=== PATIENT | female | born 1990 | race American Indian/Alaskan Native ===

== ENCOUNTER 2017-01-10 20:51 | Outpatient (CLI) | payer MEDICAID ==
[2017-01-10 21:24] VITALS: BP 136/71
[2017-01-10] MEDS ORDERED: LACTATED RINGERS 1,000 ML ONE ×2 (21:32→22:25)
[2017-01-10 22:37] LABS: Bacteria,Urine 2+ /HPF (Negative); Bilirubin,Urine NEG (Negative); Blood,Urine NEG (Negative); Ketones,Urine 20 mg/dL (Negative); Leukocyte Esterase,Urine MOD (Negative); Mucus,Urine FEW /HPF; Nitrite,Urine NEG (Negative); Protein,Urine <15 mg/dL mg/dL (Negative); Urobilinogen,Urine < 2.0 mg/dL (<2.0)
[2017-01-11] MEDS ORDERED: LACTATED RINGERS 1,000 ML IV SCH (01:00)
--- NOTE | 2017-01-11 07:56 | Ultrasound Report ---
ULTRASOUND BIOPHYSICAL PROFILE: History: well being Technique: Transabdominal ultrasound with Doppler interrogation. TWIN A 2 - breathing movements 2 - movements 2 - posture and tone 2 - Qualitative amniotic fluid volume 8 - TOTAL SCORE OF POSSIBLE 8 Heart Rate (bpm) 145 ULTRASOUND BIOPHYSICAL PROFILE: TWIN B 2 - breathing movements 2 - movements 2 - posture and tone 2 - Qualitative amniotic fluid volume 8 - TOTAL SCORE OF POSSIBLE 8 Heart Rate (bpm) 154 ULTRASOUND OB LIMITED History: well being, nonreactive stress test, evaluate cervical length Technique: Transabdominal ultrasound with Doppler interrogation. Cervical length: 2.9 cm (Normal > 3 cm)
== END 2017-01-11 01:13 | disposition home or self-care (01) ==
LOC: TRG 20:51
PROVIDERS: ATTEND Obstetrics & Gynecology
DX: O30.003 Twin pregnancy, unspecified number of placenta and unspecified number of amniotic sacs, third trimester (principal); Z3A.35 35 weeks gestation of pregnancy
CPT/HCPCS: 76815; 76819; 81001; J7120; 59025

== ENCOUNTER 2017-01-15 22:53 | Outpatient (CLI) | payer MEDICAID ==
[2017-01-15] MEDS ORDERED: LACTATED RINGERS 1,000 ML IV ONE (23:03)
[2017-01-15 23:22] VITALS: BP 135/81
[2017-01-15] MEDS ORDERED: ZOFRAN IV ONE (23:59)
[2017-01-16 01:09] LABS: Bacteria,Urine 2+ /HPF (Negative); Bilirubin,Urine NEG (Negative); Blood,Urine NEG (Negative); Granular Casts,Urine 6 /LPF; Ketones,Urine TR mg/dL (Negative); Leukocyte Esterase,Urine SM (Negative); Nitrite,Urine NEG (Negative)
== END 2017-01-16 01:40 | disposition home or self-care (01) ==
LOC: TRG 22:53
PROVIDERS: ATTEND Obstetrics & Gynecology
DX: O47.03 False labor before 37 completed weeks of gestation, third trimester (principal); Z3A.34 34 weeks gestation of pregnancy
CPT/HCPCS: 59025; 81001; 96360; J2405; J7120

== ENCOUNTER 2017-01-17 05:01 | Inpatient (IN) | payer MEDICAID ==
[2017-01-17] MEDS ORDERED: LACTATED RINGERS 2,000 ML ONE (05:39)
[2017-01-17] MEDS ORDERED: REGLAN ONE (05:42)
[2017-01-17] MEDS ORDERED: ANCEF/STERILE WATER 2 GM/20 ML 2 GM/20 ML SYRINGE IV ONE (05:42)
[2017-01-17] MEDS ORDERED: PITOCin/NS 20 UNIT/1000ML DRIP 20,000 MILLIUNITS/1,000 ML BAG IV ONE (05:42)
[2017-01-17] MEDS ORDERED: PEPCID IV ONE ×2 (05:42→05:44)
[2017-01-17] MEDS ORDERED: BICITRA ONE (05:42)
[2017-01-17] MEDS ORDERED: REGLAN IV ONE (05:44)
[2017-01-17] MEDS ORDERED: BICITRA PO ONE (05:44)
[2017-01-17] MEDS ORDERED: MORPHINE ONE (05:57)
[2017-01-17] MEDS ORDERED: ANCEF/STERILE WATER 2 GM/20 ML IV ONE (05:59)
[2017-01-17] MEDS ORDERED: ANCEF/STERILE WATER 2 GM/20 ML 2 GM/20 ML SYRINGE IV NR (06:00)
[2017-01-17] MEDS ORDERED: PITOCin/NS 20 UNIT/1000ML DRIP 20 UNITS/1,000 ML BAG IV SCH ×2 (06:00→09:00)
[2017-01-17] MEDS ORDERED: LACTATED RINGERS 1,000 ML IV SCH (06:00)
[2017-01-17 06:06] LABS: Hematocrit 29.7 % (30.3-42.9); Hemoglobin 10.2 gm/dl (10.1-14.3); Mean Corpuscular HGB Conc 34 % (30-34); Mean Corpuscular Hemoglobin 33 pg (28-32); Mean Corpuscular Volume 95 fl (79-97); Platelet Count 183 K/mm3 (140-440); Red Blood Count 3.13 M/mm3 (3.65-5.03); Red Cell Distribution Width 14.2 % (13.2-15.2); White Blood Count 9.9 K/mm3 (4.5-11.0)
[2017-01-17] MEDS ORDERED: ePHEDrine SULFATE ONE (06:09)
[2017-01-17] MEDS ORDERED: NACL 0.9% IR ONE (06:30)
[2017-01-17] MEDS ORDERED: WATER FOR IRRIG STERILE IR ONE (06:30)
[2017-01-17] MEDS ORDERED: HEMABATE IM ONE ×2 (06:40→06:44)
[2017-01-17] MEDS ORDERED: ZOFRAN ONE (06:48)
[2017-01-17] MEDS ORDERED: NACL 0.9% 1000 ML 1,000 ML ONE (07:26)
--- NOTE | 2017-01-17 07:58 | Procedure Note ---
OB Delivery Note - Section Preop diagnosis: repeat Postop diagnosis: same section procedure: primary low transverse Disposition: PACU Complications: none
[2017-01-17 08:16] LABS: Blastocytes % (Manual) 0 %
[2017-01-17 08:17] LABS: Large Platelets Few; Polychromasia Few; Target Cells Few
[2017-01-17 08:18] LABS: Diff Status Complete
[2017-01-17] MEDS ORDERED: ZOFRAN IV PRN (09:00)
[2017-01-17] MEDS ORDERED: SODIUM CHLORIDE FLUSH SYRINGE 10 ML IV PRN (09:00)
[2017-01-17] MEDS ORDERED: PHENERGAN PR PRN (09:00)
[2017-01-17] MEDS ORDERED: MORPHINE IV PRN (09:00)
[2017-01-17] MEDS ORDERED: TUCKS PAD TP PRN (09:00)
[2017-01-17] MEDS ORDERED: LANSINOH TP PRN (09:00)
[2017-01-17] MEDS ORDERED: SENOKOT PO PRN (09:00)
[2017-01-17] MEDS ORDERED: NARCAN 0.4 MG/1 ML IV PRN (09:30)
--- NOTE | 2017-01-17 10:05 | Post Anesthesia Evaluation ---
- Post Anesthesia Evaluation Patient Participated: Yes Airway Patent: Yes Stable Respiratory Function: Yes Nausea/Vomiting: No Temp > 96.8F: Yes Pain Manageable: Yes Adequeate Hydration: Yes Anesthesia Complications: No Block Receding Appropriately: Yes Patient on Ventilator: No
--- NOTE | 2017-01-17 10:05 | Anesthesia Day of Surgery ---
Anesthesia Day of Surgery - Day of Surgery Patient Examined: Yes Patient H&P Reviewed: Yes Patient is NPO: Yes
--- NOTE | 2017-01-17 10:05 | Anesthesia Consultation ---
Anesthesia Consult and Med Hx Date of service: 01/17/17 - Airway Anesthetic Teeth Evaluation: Good ROM Head & Neck: Adequate Mental/Hyoid Distance: Adequate Mallampati Class: Class I Intubation Access Assessment: Good - Pulmonary Exam CTA: Yes - Cardiac Exam Cardiac Exam: RRR - Pre-Operative Health Status ASA Pre-Surgery Classification: ASA2, Emergency Proposed Anesthetic Plan: Spinal - Pulmonary Hx Asthma: No COPD: No Hx Pneumonia: No - Cardiovascular System Hx Hypertension: No - Central Nervous System Hx Seizures: No Hx Psychiatric Problems: No - Endocrine Hx Renal Disease: No Hx End Stage Renal Disease: No Hx Hypothyroidism: No Hx Hyperthyroidism: No - Hematic Hx Anemia: No Hx Sickle Cell Disease: No - Other Systems Hx Alcohol Use: Yes (LIQUOR, WINE, BEER)
--- NOTE | 2017-01-17 10:34 | Operative Report ---
PREOPERATIVE DIAGNOSIS: Twin gestation at 34 weeks and 1 day in labor. POSTOPERATIVE DIAGNOSIS: 1. Twin gestation at 34 weeks and 1 day in labor. 2. Intraoperative uterine atony responsive to myometrial hemabate. PROCEDURE: Primary low transverse section. SURGEON: Brigitte Adames MD MACHINIST SET UP: Senior Center Director Radha Bullock ANESTHESIA: Spinal. COMPLICATIONS: None. ESTIMATED BLOOD LOSS: 800 mL. IV FLUIDS: Ringer's lactate 2 liters. URINE OUTPUT: 150 mL and clear at the end of the procedure. INTRAOPERATIVE FINDINGS: 1. Twins gestation, baby A in a vertex presentation, delivered at 6:34 AM, Apgars 8/9 at 1 and 5 mins respectively. Baby B in a footling breech presentation delivered at 6:36 AM, Apgars 8/9 at 1 and 5 mins respectively. 2.Uterine atony responsive to myometrial hemabate. PROCEDURE DETAILS: The risks, benefits, and alternatives of the procedure were discussed in detail with the patient, which included but not limited to the risk of infection, hemorrhage requiring blood transfusion and injury to the bowel, bladder, and blood vessels. The patient expressed understanding. Her questions were answered and she gave informed consent. The patient was taken to the operating room with an IV fluid infusing Ringer's lactate. In the operating room she was placed in a sitting position and given spinal anesthesia then she was placed in the dorsal supine position with leftward tilt. Rausch catheter was placed. Venodyne boots were placed. The abdomen was washed and she was prepared and draped in usual sterile fashion. After confirming adequate spinal anesthesia, a Pfannenstiel skin incision was made in the lower abdomen about 2 cm above the pubic symphysis using the scalpel. This incision was carried down to the underlying fascia using the Bovie. The fascia was opened bilaterally in a curvilinear fashion using the Bovie. Two straight Laya clamps were used to grasp the upper edge of the fascia from which the underlying rectus abdominis muscle was dissected off using the Bovie. A similar procedure was done with the lower edge of the fascia to dissect the underlying rectus abdominis muscle. The muscle was bluntly from the midline by pulling. The parietal peritoneum was grasped with two hemostat clamps and entered sharply using Metzenbaum scissors. A quick survey of the anatomy revealed a gravid uterus, normal ovaries, and fallopian tubes bilaterally. A bladder flap was created using Metzenbaum scissors. Then, the Josh O retractor was placed at the incision for proper visualization. Then, lower transverse incision was made in the lower uterine segment using the scapel then extended with bandage scissors bilaterally in a curvilinear fashion. Baby A's amniotic has been ruptured and there was scant amount of amniotic fluid. This baby was found in a vertex presentation. The head was delivered first. Bulb suction of the mouth and nose was performed. This was followed by the delivery of the shoulders and the rest of the body atraumatically. Delivery time was 6:34 a.m. Apgars were 8 at 1 minute and 9 at 5 minutes. Weight was 4 pounds 2 ounces. The cord was clamped x 2 and cut. The was handed off to the waiting car worker. Cord blood was collected. Attention was then turned to baby B. The amniotic sac was ruptured. There was copious amount of clear amniotic fluid. Baby B was found in the footling breech presentation. The feet and the body were delivered up to the thorax, and the anterior shoulder was delivered. The body was rotated 180 degrees to bring the posterior shoulder to an anterior position, which was delivered atraumatically and the head was flexed and delivered. The delivery time was 6:36 a.m. Apgars 8 at 1 minute and 9 at 5 minutes, weight 4 pounds 9 ounces and both babies were female. The cord was clamped x 2 and cut, and the baby was handed off to the waiting car worker. The placentae were delivered manually and were complete with 3-vessel cords. The uterus was cleared of clots and debris using dry lap sponges. There was some uterine atony. Hemabate 250 mcg were given into the myometrium. The uterine incision was repaired in a running locked fashion using 0 Vicryl sutures. Second layer of imbrication was placed. The gutters were cleaned of clot and debris using dry lap sponges. Again confirming adequate hemostasis, the fascia was closed in a running fashion using 0 Vicryl sutures. The skin was closed with suzie. Sterile dressing was placed. The counts of laps, needles, sponges, and instruments were correct x 2. The patient tolerated the procedure well. She was taken to the recovery room in a stable condition. JOB# [id number] BECCA/ROSIBEL RIVERA
--- NOTE | 2017-01-17 10:47 | History and Physical Report ---
ADMITTING DIAGNOSIS: Twin gestation at 34 weeks and 1 day with labor. HISTORY OF PRESENT ILLNESS: This patient is a 26-year-old female 1, para 0, due date 02/26/2017, with twin gestation at 34 weeks and 1 day, confirmed by first trimester ultrasound , who presented to the maternity floor around 5:15 a.m. complaining of fluid leakage per vagina since 2:30 AM and contractions every 2 minutes. She reported good movement for both babies. She was admitted and a bedside ultrasound showed baby A to be in the vertex presentation, Baby B to be footling breech. Heartbeat for baby A was in the 130s to 140s and for baby B 140 beats per minute. No decelerations were heard. PAST MEDICAL HISTORY: Denies. PAST SURGICAL HISTORY: Denies. ALLERGIES: Denies any drug allergies. SOCIAL HISTORY: Denies any smoking, alcohol, or drug abuse. FAMILY HISTORY: Noncontributory. REVIEW OF SYSTEMS: As above. PHYSICAL EXAMINATION: GENERAL: No acute distress. VITAL SIGNS: Stable, afebrile. HEENT: Normal. NEUROLOGIC: Alert, awake, oriented x 3. BREASTS: Deferred. RECTAL: Deferred. EXTREMITIES: +1 edema, no calf tenderness, no Homans sign. ABDOMEN: Gravid with palpable contractions every 2 minutes. PELVIC: Cervix is 9 cm, 100% effaced, baby A at +1 station, fluid is clear. LABORATORY DATA: Collection has been drawn. These are pending. IMPRESSION: Twin gestation at 34 weeks and 1 days with labor. PLAN: 1. I discussed the malpresentations with the patient and I will set her up for primary section. Risks, benefits, and alternatives of the procedure were discussed with her, which included but not limited to risks of infection, hemorrhage requiring blood transfusion, injury to the bowel, bladder, and blood vessels. She expressed understanding. Her questions were answered. She gives informed consent for primary section. 2. Admitting labs have been drawn stat, results pending. 3. Anesthesia and OR team have been called. 4. The patient is n.p.o., IV fluid has been started. Antibiotics are being given. She is director community organization to the OR. JOB# [id number] BECCA/ROSIBEL RIVERA
[2017-01-17] MEDS ORDERED: MYLICON PO PRN (11:54)
[2017-01-17] MEDS ORDERED: TORADOL IV SCH (12:00)
[2017-01-17] MEDS: BENADRYL PO PRN (12:04)
[2017-01-17 19:56] LABS: Hematocrit 26.8 % (30.3-42.9); Hemoglobin 8.8 gm/dl (10.1-14.3)
[2017-01-17] MEDS: TORADOL IV PRN (21:24)
[2017-01-18] MEDS: TORADOL IV PRN (04:32)
[2017-01-18] MEDS ORDERED: AMMONIA INHALANT IH ONE (05:04)
[2017-01-18] MEDS ORDERED: NACL 0.9% 500 ML 500 ML IV ONE (05:46)
--- NOTE | 2017-01-18 09:33 | Progress Note ---
Assessment and Plan A: POD # 1 Urinary retention P: In and Out cath done this am to empty bladder Cath prn, consider reinsertion of garcia if continues Subjective - Subjective Date of service: 01/18/17 Principal diagnosis: Primary c section, PTL, twins Patient reports: appetite normal Arminto: in NICU Objective - Vital Signs Latest vital signs: Vital Signs Temp Pulse Resp BP BP Pulse Ox 01/18/17 08:19 98.5 F 18 144/89 01/18/17 04:10 98.2 F 88 18 109/64 01/18/17 01:10 97.8 F 87 20 124/68 01/17/17 21:58 98 F 102 H 20 129/81 01/17/17 16:00 98.3 F 84 20 114/65 01/17/17 12:40 128 H 41 H 97 01/17/17 12:39 141 H 44 H 97 01/17/17 10:14 94 Intake and Output 01/17/17 01/18/17 01/18/17 22:59 06:59 14:59 Intake Total 240 600 Output Total 1400 150 Balance -1160 450 Intake: Oral 240 Intake, Free Water 600 Output: Urine 1400 150 Indwelling Catheter 1400 150 Other: Total, Intake Amount 240 Total, Output Amount 800 150 # Voids Void 0 - Exam Breasts: Present: deferred Cardiovascular: Present: Regular rate Lungs: Present: Clear to auscultation Abdomen: Present: soft Vulva: both: normal Uterus: Present: fundal height below umbilicus Extremities: Present: normal Deep Tendon Reflex Grade: Normal +2 - Labs Labs: Abnormal lab results 01/17/17 01/18/17 Range/Units 19:33 07:06 Hgb 8.8 L (10.1-14.3) gm/dl Hct 26.8 L (30.3-42.9) % Ammonia 16.0 L (25-60) umol/L
--- NOTE | 2017-01-18 10:36 | Progress Note ---
Subjective Date of service: 01/18/17 Principal diagnosis: Primary c section, PTL, twins Interval history: 1st POD after Patient is in the bed, comfortable. Pain is well controlled with pain meds.Ambulated well. No residual neurological deficit. Pruritus is mostly under control. No anesthesia complications Objective - Constitutional Vitals: Vital Signs - 12hr 01/18/17 01/18/17 01/18/17 01:10 04:10 08:19 Temperature 97.8 F 98.2 F 98.5 F Pulse Rate 87 88 Respiratory 20 18 18 Rate Blood Pressure 144/89 Blood Pressure 124/68 109/64 [Left] - Labs CBC & Chem 7: 01/17/17 19:33 Labs: Abnormal lab results 01/17/17 01/18/17 Range/Units 19:33 07:06 Hgb 8.8 L (10.1-14.3) gm/dl Hct 26.8 L (30.3-42.9) % Ammonia 16.0 L (25-60) umol/L
[2017-01-18] MEDS: PERCOCET 5/325 PO PRN ×3 (10:41→20:12)
[2017-01-18] MEDS: BENADRYL PO PRN ×2 (10:45→20:19)
[2017-01-18] MEDS ORDERED: LASIX IV ONE (18:42)
[2017-01-18] MEDS: LASIX ONE ×2 (18:49→18:53)
[2017-01-19] MEDS: PERCOCET 5/325 PO PRN ×3 (07:03→20:10)
[2017-01-19] MEDS: BENADRYL PO PRN ×2 (07:03→20:10)
[2017-01-19] MEDS: MOTRIN PO PRN ×2 (10:52→17:19)
--- NOTE | 2017-01-19 13:39 | Progress Note ---
Subjective - Subjective Date of service: 01/19/17 Principal diagnosis: Primary c section, PTL, twins Interval history: This patient is a 26 years old female who is status post primary low transverse section for labor with twin gestation on 01/17/2017. Her course has been unremarkable until she was unable to urinate after removal of the Rausch yesterday morning. At that time the Rausch catheter was re-inserted and it was draining large amount of clear urine. She had a spinal anesthesia for the procedure and she's been managed with Percocet since postoperative day 1. She developed on drowsiness after she takes a Percocet, she was then given Motrin for pain. Today, I came to see the patient. She is lying comfortably in bed, she denies any headache, visual changes, or right upper quadrant pain. Her blood pressure was 141/89, repeat was 130/82 Physical exam: Gen:no acute distress. HEENT: normal. Chest: clear to auscultation bilaterally. Cardiovascular: normal heart sound. Neurological:AAO 3 Breast exam: deferred. Rectal exam: deferred. Extremities: +2 edema tenderness no Homans sign. Abdomen: soft, positive for incisional tenderness of the incision site. Dressing is clean, dry, no drainage. Uterus is firm. Labs: pOD#1, hemoglobin 10.2 hematocrit 29.7. POD#2, hemoglobin was 8.8 hematocrit was 26.8. Assessment 1. 26 years old female who is status post primary section for labor with twins, postoperative day 2. 2. Gestation hypertension. Currently asymptomatic. 3. Anemia. 4. Urinary retention post op. Rausch has been removed. Plan: 1. Patient was given pain medication. Will monitor the blood pressure over the next 2-3 hours. If it remained elevated, will do toxemia labs. 2. We'll continue pain medication as needed. 3. Iron for anemia. 4. OOB to ambulate. 5. Monitor ability to urinate. Objective - Vital Signs Latest vital signs: Vital Signs Temp Pulse Resp BP BP BP Pulse Ox 01/19/17 12:30 100 H 130/82 01/19/17 10:52 18 01/19/17 10:50 138/90 01/19/17 08:31 97.3 F L 100 H 16 141/89 97 01/19/17 00:30 98.6 F 71 16 101/76 01/19/17 00:15 98.8 F 69 16 121/71 01/18/17 17:30 98.0 F 87 128/78 Intake and Output 01/18/17 01/19/17 01/19/17 22:59 06:59 14:59 Intake Total 300 240 Output Total 1900 1900 Balance -1900 300 -1660 Intake: Oral 240 Intake, Free Water 300 Output: Urine 1900 1900 Indwelling Catheter 1700 1900 Void 200 Other: Total, Intake Amount 240 Total, Output Amount 1700 700 # Voids Void 1
[2017-01-20] MEDS: PERCOCET 5/325 PO PRN ×3 (04:23→18:04)
--- NOTE | 2017-01-20 11:18 | Progress Note ---
Assessment and Plan A: POD #3 Voiding Well Gestational HTN Asymptomatic Anemia P: Follow Routine PostOp Orders Declines Infed Injection Continue PO FESO4 D/C Home today RTO in One Week Subjective - Subjective Date of service: 01/20/17 Principal diagnosis: Primary c section, PTL, twins Patient reports: appetite normal, voiding normally, pain well controlled, flatus , ambulating normally Normanna: in NICU, bottle feeding Objective - Vital Signs Latest vital signs: Vital Signs Temp Pulse Resp BP BP Pulse Ox 01/20/17 08:18 97.6 F 76 18 132/86 99 01/20/17 00:40 98.6 F 69 16 101/79 01/19/17 17:19 18 01/19/17 16:52 98.3 F 18 118/70 01/19/17 14:10 18 01/19/17 12:30 100 H 130/82 Intake and Output 01/19/17 01/20/17 01/20/17 22:59 06:59 14:59 Intake Total 550 Balance 550 Intake: Oral 250 Intake, Free Water 300 Other: Total, Intake Amount 250 # Voids Void 1 - Exam Breasts: Present: normal, mass Lungs: Present: Clear to auscultation Abdomen: Present: normal appearance, soft, normal bowel sounds Uterus: Present: normal, firm, fundal height below umbilicus Extremities: Present: edema Incision: Present: normal, dry, intact
--- NOTE | 2017-01-20 11:20 | Discharge Summary ---
Providers - Providers Date of Admission: 01/17/17 05:26 Date of discharge: 01/20/17 Attending physician: KATHYA CURRAN MD Primary care physician: KATHYA CURRAN MD Hospitalization Reason for admission: section Delivery: Procedure: primary low transverse Episiotomy: none Laceration: none Incision: normal, dry, intact Other procedures: none complications: other (urinary hestiancy) Discharge diagnosis: delivery Jachin baby: twins Condition at discharge: Good Disposition: DC-01 TO HOME OR SELFCARE Plan - Provider Discharge Summary Activity: routine, no sex for 6 weeks, no heavy lifting 4 weeks, no strenuous exercise Diet: routine Instructions: routine Additional instructions: [] Smoking cessation referral if applicable(refer to patient education folder for contact #) [] Refer to [facility]'s [facility] Booklet Call your doctor immediately for: * Fever > 100.5 * Heavy vaginal bleeding ( >1 pad per hour) * Severe persistent headache * Shortness of breath * Reddened, hot, painful area to leg or breast * Drainage or odor from incision. * Keep incision clean and dry at all times and follow doctor's instructions regarding bathing/showering - Follow up plan Follow up: KATHYA CURRAN MD [Primary Care Provider] - 7 Days
[2017-01-20 16:47] VITALS: BP 136/89
== END 2017-01-20 19:17 | disposition home or self-care (01) | DRG 765 ==
LOC: TRG 05:01 → LD 05:26 → OB 09:47
PROVIDERS: ADMIT Obstetrics & Gynecology; ATTEND Obstetrics & Gynecology
PROC: 10D00Z1 Extraction of Products of Conception, Low, Open Approach (ICD-10-PCS; principal; 2017-01-17)
DX: O60.14X1 Preterm labor third trimester with preterm delivery third trimester, fetus 1 (principal); O13.4 Gestational [pregnancy-induced] hypertension without significant proteinuria, complicating childbirth; O30.003 Twin pregnancy, unspecified number of placenta and unspecified number of amniotic sacs, third trimester; O60.14X2 Preterm labor third trimester with preterm delivery third trimester, fetus 2; Z3A.34 34 weeks gestation of pregnancy; Z37.2 Twins, both liveborn; O34.211 Maternal care for low transverse scar from previous cesarean delivery; O99.02 Anemia complicating childbirth; O62.2 Other uterine inertia
CPT/HCPCS: 36415; 82140; 85007; 85014; 85018; 85025; 86850; 86900; 86901; 88307; 99211; G0463; J0690; J1885; J1940; J2270; J2405; J2590; J2765; J7030; J7040; J7120

== ENCOUNTER 2017-01-24 07:58 | Inpatient (IN) | payer MEDICAID ==
--- NOTE | 2017-01-24 08:52 | XRay Report ---
ROUTINE CHEST, TWO VIEWS: HISTORY: Shortness of breath. Mild central pulmonary venous congestion is suspected. Trace left pleural effusion is also suspected. The lungs are clear. No evidence for pneumonia or pneumothorax. Heart and mediastinal structures are within normal limits. Normal bony structures. IMPRESSION: Mild central pulmonary venous congestion and trace left pleural effusion.
[2017-01-24 09:27] LABS: BUN/Creatinine Ratio 7.14; Blood Urea Nitrogen 5 mg/dL (7-17); Calcium 7.4 mg/dL (8.4-10.2); Carbon Dioxide 21 mmol/L (22-30); Chloride 106.5 mmol/L (98-107); Glucose 83 mg/dL (65-100); Sodium 141 mmol/L (137-145)
[2017-01-24 09:31] LABS: Anion Gap 18 mmol/L; Potassium 4.8 mmol/L (3.6-5.0)
[2017-01-24 09:33] LABS: Hematocrit 24.1 % (30.3-42.9); Hemoglobin 8.4 gm/dl (10.1-14.3); Mean Corpuscular HGB Conc 35 % (30-34); Mean Corpuscular Hemoglobin 33 pg (28-32); Mean Corpuscular Volume 96 fl (79-97); Platelet Count 275 K/mm3 (140-440); Red Blood Count 2.53 M/mm3 (3.65-5.03); Red Cell Distribution Width 14.8 % (13.2-15.2); White Blood Count 9.5 K/mm3 (4.5-11.0)
[2017-01-24] MEDS ORDERED: SUBLIMAZE IV ONE (09:57)
--- NOTE | 2017-01-24 09:59 | Emergency Department Report ---
ED General Adult HPI - General Chief complaint: Dyspnea/Respdistress Stated complaint: BRENDA Time Seen by Provider: 01/24/17 09:43 Source: patient, RN notes reviewed, old records reviewed Mode of arrival: Ambulatory Limitations: Physical Limitation - History of Present Illness Initial comments: This is a 26-year-old female, she is previously unknown to this provider. Denies chronic medical conditions, patient recently delivered via , at 34 weeks, by Dr. Jesusita Adames, without complication. As far as the patient knows, no history of eclampsia or preeclampsia. Patient is scheduled to have her sutures taken out today. Presents with 2 complaints. Her primary complaint is shortness of breath and orthopnea. This is constant over the past few days. It worsens with physical exertion, decreases with rest , and decreases when sitting up, and increases when laying supine. She endorses lower extremity swelling. There is no chest pain. There is no hematemesis or bright red blood per rectum. Her next complaint is lower abdominal pain over the site. The pain is sharp and constant. It does not radiate anywhere. It has been present since her . She denies irritative and obstructive urinary symptoms. -: Gradual Location: abdomen Severity scale (0 -10): 0 Quality: aching Consistency: constant Improves with: rest Worsens with: movement Associated Symptoms: shortness of breath, weakness - Related Data Home Medications Medication Instructions Recorded Confirmed Last Taken No Known Home Medications [No 01/11/17 01/24/17 Unknown Reported Home Medications] Allergies Allergy/AdvReac Type Severity Reaction Status Date / Time No Known Allergies Allergy Verified 01/10/17 21:30 ED Review of Systems ROS: Stated complaint: BRENDA Other details as noted in HPI Constitutional: malaise, weakness Eyes: denies: vision change ENT: denies: epistaxis Respiratory: shortness of breath Cardiovascular: edema. denies: chest pain Gastrointestinal: abdominal pain. denies: melena, hematochezia Genitourinary: denies: dysuria Musculoskeletal: denies: back pain Skin: denies: lesions Neurological: denies: weakness ED Past Medical Hx - Past Medical History Previous Medical History?: No Hx Hypertension: No Hx Congestive Heart Failure: No Hx Diabetes: No Hx Deep Vein Thrombosis: No Hx Renal Disease: No Hx Sickle Cell Disease: No Hx Seizures: No Hx Asthma: No Hx COPD: No Hx HIV: No - Surgical History Past Surgical History?: Yes Additional Surgical History: - Social History Smoking Status: Never Smoker Substance Use Type: None - Medications Home Medications: Home Medications Medication Instructions Recorded Confirmed Last Taken Type No Known Home Medications [No 01/11/17 01/24/17 Unknown History Reported Home Medications] ED Physical Exam - General Limitations: Physical Limitation General appearance: alert, in no apparent distress - Head Head exam: Present: atraumatic, normocephalic - Eye Eye exam: Present: normal appearance, EOMI. Absent: nystagmus - ENT ENT exam: Present: normal exam, normal orophraynx, mucous membranes moist, normal external ear exam - Neck Neck exam: Present: normal inspection, full ROM, other (JVD is noted). Absent: tenderness, meningismus - Respiratory Respiratory exam: Present: respiratory distress, rales, rhonchi - Cardiovascular Cardiovascular Exam: Present: regular rate, normal rhythm, normal heart sounds. Absent: bradycardia, tachycardia, irregular rhythm, systolic murmur, diastolic murmur, rubs, gallop - GI/Abdominal GI/Abdominal exam: Present: soft, tenderness, normal bowel sounds, other ( diffuse lower abdominal tenderness, no redness, pus or streaking, no dehiscence of the surgical site). Absent: distended, guarding, rebound, rigid, pulsatile mass - Extremities Exam Extremities exam: Present: normal inspection, normal capillary refill, pedal edema, other (2+ pitting edema is noted in the bilateral lower extremities). Absent: calf tenderness - Back Exam Back exam: Present: normal inspection, full ROM. Absent: tenderness, CVA tenderness (R), CVA tenderness (L), muscle spasm, paraspinal tenderness, vertebral tenderness - Neurological Exam Neurological exam: Present: alert, oriented X3, other (Extraocular movements intact. Tongue midline. No facial droop. Facial sensation intact to light touch in the V1, V2, V3 distribution bilaterally. 5 and 5 strength in 4 extremities.. Sensation is intact to light touch in 4 extremities.). Absent: motor sensory deficit - Psychiatric Psychiatric exam: Present: normal affect, normal mood - Skin Skin exam: Present: warm, dry, intact, normal color. Absent: rash ED Course Vital Signs 01/24/17 01/24/17 01/24/17 08:02 08:17 08:20 Temperature 98.8 F Pulse Rate 82 83 Respiratory 28 H 18 Rate Blood Pressure 144/87 O2 Sat by Pulse 97 Oximetry 01/24/17 01/24/17 01/24/17 08:21 08:30 09:00 Temperature Pulse Rate 84 71 69 Respiratory 13 16 Rate Blood Pressure 159/91 159/91 O2 Sat by Pulse 88 Oximetry 01/24/17 01/24/17 01/24/17 09:30 10:00 10:17 Temperature Pulse Rate 87 67 60 Respiratory 21 20 18 Rate Blood Pressure 144/91 155/86 155/86 O2 Sat by Pulse 96 100 Oximetry 01/24/17 01/24/17 01/24/17 10:29 10:30 11:00 Temperature Pulse Rate 64 67 70 Respiratory 20 21 Rate Blood Pressure 155/86 170/101 137/77 O2 Sat by Pulse Oximetry 01/24/17 01/24/17 01/24/17 11:32 12:00 12:30 Temperature Pulse Rate 59 L 60 Respiratory 22 23 Rate Blood Pressure 137/77 141/73 147/83 O2 Sat by Pulse 83 L 100 100 Oximetry 01/24/17 01/24/17 01/24/17 13:00 13:30 14:00 Temperature Pulse Rate 68 60 66 Respiratory 13 19 19 Rate Blood Pressure 149/86 161/93 168/101 O2 Sat by Pulse Oximetry 01/24/17 01/24/17 01/24/17 14:30 14:45 15:00 Temperature Pulse Rate 70 70 66 Respiratory 14 26 H Rate Blood Pressure 160/96 137/77 154/90 O2 Sat by Pulse Oximetry 01/24/17 01/24/17 01/24/17 15:26 15:30 16:00 Temperature Pulse Rate 68 64 63 Respiratory 21 21 Rate Blood Pressure 144/83 155/80 O2 Sat by Pulse Oximetry 01/24/17 01/24/17 01/24/17 16:30 16:56 17:00 Temperature Pulse Rate 90 67 65 Respiratory 22 27 H 28 H Rate Blood Pressure 130/77 130/77 130/77 O2 Sat by Pulse Oximetry 01/24/17 01/24/17 01/24/17 17:10 17:22 18:10 Temperature Pulse Rate 68 69 65 Respiratory 30 H 31 H Rate Blood Pressure 130/77 130/77 O2 Sat by Pulse Oximetry 01/24/17 18:15 Temperature 98.7 F Pulse Rate 71 Respiratory 18 Rate Blood Pressure O2 Sat by Pulse Oximetry - Reevaluation(s) Reevaluation #1: 01/24/17 11:27 CT scan complete. Still symptomatic. feels improved on BiPAP therapy. Reevaluation #2: 01/24/17 12:14 CT scan demonstrates no pulmonary embolus. Abdominal CT negative for acute findings. Findings consistent with cardiomyopathy/congestive heart Reevaluation #3: 01/24/17 12:42 Dr. Bhagat, [facility] physician accepts patient to his service. ED Medical Decision Making - Lab Data Result diagrams: 01/25/17 05:46 01/25/17 05:46 Vital Signs 01/24/17 01/24/17 01/24/17 08:02 08:17 08:20 Temperature 98.8 F Pulse Rate 82 83 Respiratory 28 H 18 Rate Blood Pressure 144/87 O2 Sat by Pulse 97 Oximetry 01/24/17 01/24/17 01/24/17 08:21 08:30 09:00 Temperature Pulse Rate 84 71 69 Respiratory 13 16 Rate Blood Pressure 159/91 159/91 O2 Sat by Pulse 88 Oximetry 01/24/17 01/24/17 01/24/17 09:30 10:00 10:17 Temperature Pulse Rate 87 67 60 Respiratory 21 20 18 Rate Blood Pressure 144/91 155/86 155/86 O2 Sat by Pulse 96 100 Oximetry 01/24/17 01/24/17 10:29 10:30 Temperature Pulse Rate 64 67 Respiratory 20 Rate Blood Pressure 155/86 170/101 O2 Sat by Pulse Oximetry Lab Results 01/24/17 01/24/17 01/24/17 Range/Units 08:58 08:58 08:58 WBC 9.5 (4.5-11.0) K/mm3 RBC 2.53 L (3.65-5.03) M/mm3 Hgb 8.4 L (10.1-14.3) gm/dl Hct 24.1 L (30.3-42.9) % MCV 96 (79-97) fl MCH 33 H (28-32) pg MCHC 35 H (30-34) % RDW 14.8 (13.2-15.2) % Plt Count 275 (140-440) K/mm3 PT 13.7 (12.2-14.9) Sec. INR 1.00 (0.87-1.13) APTT 28.8 (24.2-36.6) Sec. Sodium 141 (137-145) mmol/L Potassium 4.8 (3.6-5.0) mmol/L Chloride 106.5 (98-107) mmol/L Carbon Dioxide 21 L (22-30) mmol/L Anion Gap 18 mmol/L BUN 5 L (7-17) mg/dL Creatinine 0.7 (0.7-1.2) mg/dL Estimated GFR > 60 ml/min BUN/Creatinine Ratio 7.14 % Glucose 83 (65-100) mg/dL Calcium 7.4 L (8.4-10.2) mg/dL Total Bilirubin (0.1-1.2) mg/dL Direct Bilirubin (0-0.2) mg/dL Indirect Bilirubin mg/dL AST (5-40) units/L ALT (7-56) units/L Alkaline Phosphatase (35-129) units/L Troponin T < 0.010 (0.00-0.029) ng/mL NT-Pro-B Natriuret Pep (0-450) pg/mL Total Protein (6.3-8.2) g/dL Albumin (3.9-5) g/dL Albumin/Globulin Ratio % Urine Color (Yellow) Urine Turbidity (Clear) Urine pH (5.0-7.0) Ur Specific [place] (1.003-1.030) Urine Protein (Negative) mg/dL Urine Glucose (UA) (Negative) mg/dL Urine Ketones (Negative) mg/dL Urine Blood (Negative) Urine Nitrite (Negative) Urine Bilirubin (Negative) Urine Urobilinogen (<2.0) mg/dL Ur Leukocyte Esterase (Negative) Urine WBC (Auto) (0.0-6.0) /HPF Urine RBC (Auto) (0.0-6.0) /HPF U Epithel Cells (Auto) (0-13.0) /HPF 01/24/17 01/24/17 Range/Units 08:58 10:04 WBC (4.5-11.0) K/mm3 RBC (3.65-5.03) M/mm3 Hgb (10.1-14.3) gm/dl Hct (30.3-42.9) % MCV (79-97) fl MCH (28-32) pg MCHC (30-34) % RDW (13.2-15.2) % Plt Count (140-440) K/mm3 PT (12.2-14.9) Sec. INR (0.87-1.13) APTT (24.2-36.6) Sec. Sodium (137-145) mmol/L Potassium (3.6-5.0) mmol/L Chloride (98-107) mmol/L Carbon Dioxide (22-30) mmol/L Anion Gap mmol/L BUN (7-17) mg/dL Creatinine (0.7-1.2) mg/dL Estimated GFR ml/min BUN/Creatinine Ratio % Glucose (65-100) mg/dL Calcium (8.4-10.2) mg/dL Total Bilirubin 0.40 (0.1-1.2) mg/dL Direct Bilirubin < 0.2 (0-0.2) mg/dL Indirect Bilirubin 0.2 mg/dL AST 47 H (5-40) units/L ALT 19 (7-56) units/L Alkaline Phosphatase 86 (35-129) units/L Troponin T (0.00-0.029) ng/mL NT-Pro-B Natriuret Pep 943.5 H (0-450) pg/mL Total Protein 6.3 (6.3-8.2) g/dL Albumin 2.6 L (3.9-5) g/dL Albumin/Globulin Ratio 0.7 % Urine Color Straw (Yellow) Urine Turbidity Clear (Clear) Urine pH 7.0 (5.0-7.0) Ur Specific [place] 1.004 (1.003-1.030) Urine Protein <15 mg/dl (Negative) mg/dL Urine Glucose (UA) Neg (Negative) mg/dL Urine Ketones Neg (Negative) mg/dL Urine Blood Sm (Negative) Urine Nitrite Neg (Negative) Urine Bilirubin Neg (Negative) Urine Urobilinogen < 2.0 (<2.0) mg/dL Ur Leukocyte Esterase Sm (Negative) Urine WBC (Auto) 2.0 (0.0-6.0) /HPF Urine RBC (Auto) 2.0 (0.0-6.0) /HPF U Epithel Cells (Auto) 1.0 (0-13.0) /HPF - EKG Data -: EKG Interpreted by Me EKG shows normal: sinus rhythm, axis, intervals, QRS complexes - EKG Data When compared to previous EKG there are: previous EKG unavailable - Radiology Data Radiology results: report reviewed, image reviewed X-ray of the chest demonstrates pulmonary vascular congestion, pleural effusion - Medical Decision Making Differential diagnosis: cardiomyopathy, preeclampsia, pneumonia, pulmonary embolus, postsurgical infection Assessment and plan: 26-year-old female with hypertension, edema, congestive heart failure, no transaminitis, not having proteinuria. I highly favor cardiomyopathy. Hypertension is appreciated, given concern for decreased cardiac contractility, negative inotropes will be held, and I will therefore not give labetalol. Patient will be given hydralazine. She does not require Cardene drip at this time. She is also treated empirically with magnesium drip and magnesium bolus. CT scan of the chest is pending. CT scan of the abdomen and pelvis is pending. Case discussed with the patient's screed operator, Dr. Jesusita Barfield, who will follow in consultation. Case discussed with cardiology nurse practitioner, Paula Park, they will follow in consultation. Patient will be admitted for presumed cardiomyopathy. Critical Care Time: Yes Critical care time in (mins) excluding proc time.: 35 Critical care attestation.: If time is entered above; I have spent that time in minutes in the direct care of this critically ill patient, excluding procedure time. ED Disposition Clinical Impression: cardiomyopathy Dyspnea Qualifiers: Dyspnea type: unspecified Qualified Code(s): R06.00 - Dyspnea, unspecified Disposition: -09 OP ADMIT IP TO THIS HOSP Is pt being admited?: Yes Condition: Good
[2017-01-24] MEDS ORDERED: APRESOLINE IV ONE ×2 (10:00→11:22)
[2017-01-24 10:22] LABS: Partial Thromboplastin Time 28.8 Sec. (24.2-36.6)
[2017-01-24] MEDS ORDERED: NACL ONE (10:28)
[2017-01-24 10:38] LABS: Alanine Aminotransferase 19 units/L (7-56); Albumin 2.6 g/dL (3.9-5); Albumin/Globulin Ratio 0.7 %; Alkaline Phosphatase 86 units/L (35-129); Total Protein 6.3 g/dL (6.3-8.2)
[2017-01-24 10:39] LABS: Bilirubin,Direct < 0.2 mg/dL (0-0.2)
[2017-01-24 10:45] LABS: Bilirubin,Urine NEG (Negative); Blood,Urine SM (Negative); Ketones,Urine NEG (Negative); Leukocyte Esterase,Urine SM (Negative); Nitrite,Urine NEG (Negative); Protein,Urine <15 mg/dL mg/dL (Negative); Urobilinogen,Urine < 2.0 mg/dL (<2.0)
[2017-01-24 10:59] LABS: Bilirubin,Indirect 0.2 mg/dL
[2017-01-24] MEDS ORDERED: MAGNESIUM SULFATE 40GM/1000ML 40 GM/1,000 ML BAG IV SCH ×2 (11:00→18:00)
[2017-01-24] MEDS ORDERED: MAGNESIUM SULFATE 4GM/100ML 4 GM/100 ML BAG IV ONE (11:00)
[2017-01-24 11:22] LABS: Blastocytes % (Manual) 0 %
[2017-01-24 11:23] LABS: Anisocytosis Few; Basophils % (Manual) 0 % (0.0-1.8); Polychromasia Few
[2017-01-24 11:24] LABS: Diff Status Complete
--- NOTE | 2017-01-24 12:07 | Cat Scan Report ---
CTA CHEST: History: Shortness of breath, cardiomyopathy Technique: Helical CT following IV contrast. Pulmonary embolus protocol. Sagittal and coronal reformatted images. Rotational MIP images. Findings: Contrast bolus is satisfactory. No pulmonary embolus is identified. Heart size is at the upper limits of normal. No pericardial effusion. Mild peribronchial infiltration is identified in the perihilar regions bilaterally which probably represents mild pulmonary edema. This fever is present, early infiltrates could be considered. There are small bilateral layering pleural effusions measuring up to 1.5 cm. No pneumothorax. The bony structures are intact. Impression: No evidence for pulmonary embolus. Mild bilateral pulmonary edema and small bilateral pleural effusions.
--- NOTE | 2017-01-24 12:08 | Cat Scan Report ---
CT SCAN OF THE ABDOMEN AND PELVIS WITH CONTRAST: HISTORY: Abdominal pain, recent . TECHNIQUE: Helical CT in 1.25mm intervals following IV contrast. Sagittal and coronal reconstructions. FINDINGS: The liver is normal in size and is without focal defect. The multiple small gallstones are identified within the gallbladder. The common bile duct and intrahepatic biliary ducts are normal. The spleen and pancreas demonstrate a normal size and attenuation with no evidence of abnormal mass. The kidneys are normal in size and position with no evidence of hydronephrosis or mass. The adrenal glands are normal. There is no intestinal obstruction or ascites. Normal appendix. The abdominal aorta is normal. An enlarged edematous uterus is identified. No evidence for hemorrhage or endometrial gas. The adnexa are unremarkable. There is no evidence of peritoneal air or fluid. There is no evidence of any abnormal masses or fluid collections within the pelvis. No adenopathy is identified. The bladder is normal. IMPRESSION: Cholelithiasis. uterus. No acute process is identified in the abdomen or pelvis.
--- NOTE | 2017-01-24 12:43 | History and Physical Report ---
History of Present Illness Chief complaint: I cant breathe at all History of present illness: 26 YO Female with Obesity, S/P C section at 34 weeks gestation presents to ED for evaluation. Pt states that she has experienced difficulty breathing over the past 5 days with worsening symptoms over the past 12 hours. Pt acknowledges Orthopnea/PND, as well as bilateral leg swellilng. Pt states that symptoms are worse with exertion. Pt denies fever, chills, CP, Palpitations, NVD, Syncope, BRBPR, Trauma, hemoptysis, unilateral leg swelling, calf pain, prolonged travel/ immobility, individual/family history of DVT/PE, productive cough, or recent ill contacts. Past History Past Medical History: other (Obesity) Past Surgical History: Social history: single, lives with family. denies: smoking, alcohol abuse, prescription drug abuse, IV drug use Family history: diabetes, hypertension Medications and Allergies Allergies Allergy/AdvReac Type Severity Reaction Status Date / Time No Known Allergies Allergy Verified 01/10/17 21:30 Home Medications Medication Instructions Recorded Confirmed Last Taken Type No Known Home Medications [No 01/11/17 01/24/17 Unknown History Reported Home Medications] Active Meds: Active Medications Magnesium Sulfate (Magnesium Sulfate 40gm/1000ml) 40 gm in 1,000 mls @ 25 mls/ hr IV DIRECT SHILA PRN Reason: 1 GM/HR Magnesium Sulfate (Magnesium Sulfate 4gm/100ml) 4 gm in 100 mls @ 25 mls/hr IV ONCE.ED ONE Stop: 01/24/17 14:59 Last Admin: 01/24/17 12:13 Dose: 25 mls/hr Review of Systems Constitutional: no weight loss, no weight gain, no fever, no chills, no sweats, no night sweats Ears, nose, mouth and throat: no ear pain, no ear discharge, no tinnitis, no decreased hearing, no nose pain, no nasal congestion, no nasal discharge, no sinus pressure Breasts: no change in shape, no swelling, no mass Cardiovascular: orthopnea, edema, shortness of breath, dyspnea on exertion, paroxysmal nocturnal dyspnea, leg edema, decreased exercise tolerance, no chest pain, no palpitations, no rapid/irregular heart beat, no syncope, no lightheadedness, no claudication, no phlebitis Respiratory: no cough, no cough with sputum, no excessive sputum, no hemoptysis , no shortness of breath, no dyspnea on exertion Gastrointestinal: no abdominal pain, no nausea, no vomiting, no diarrhea, no constipation, no change in bowel habits Genitourinary Female: no dysmenorrhea, no pelvic pain, no flank pain, no menorrhagia, no dysuria Rectal: no pain, no incontinence, no bleeding Musculoskeletal: no neck stiffness, no neck pain, no shooting arm pain, no arm numbness/tingling, no low back pain, no shooting leg pain Integumentary: no rash, no pruritis, no redness, no sores, no wounds, no jaundice, no boils Neurological: no head injury, no transient paralysis, no paralysis, no weakness , no parathesias, no numbness, no tingling Psychiatric: no anxiety, no memory loss, no change in sleep habits, no sleep disturbances, no insomnia, no hypersomnia, no change in appetite, no change in libido, no suicidal ideation Endocrine: no cold intolerance, no heat intolerance, no polyphagia, no excessive thirst, no polydipsia, no polyuria, no nocturia, no excessive sweating Hematologic/Lymphatic: no easy bruising, no easy bleeding Allergic/Immunologic: no urticaria, no allergic rhinitis, no wheezing Exam - Constitutional Vitals: Temp Pulse Resp BP Pulse Ox 98.8 F 67 20 170/101 100 01/24/17 08:02 01/24/17 10:30 01/24/17 10:30 01/24/17 10:30 01/24/17 10:17 General appearance: Present: mild distress, obese - EENT Eyes: Present: PERRL ENT: hearing intact, clear oral mucosa - Neck Neck: Present: supple, normal ROM - Respiratory Respiratory effort: labored Respiratory: bilateral: diminished, rhonchi - Cardiovascular Rhythm: regular Heart Sounds: Present: S1 & S2 - Extremities Extremities: no ischemia Extremity abnormal: edema - Abdominal General gastrointestinal: Present: soft, non-tender, tender (apporpriately tender, at incision site), non-distended, normal bowel sounds Female genitourinary: Present: normal - Rectal Rectal Exam: normal rectal tone - Integumentary Integumentary: Present: clear, warm, dry - Musculoskeletal Musculoskeletal: gait normal, strength equal bilaterally - Psychiatric Psychiatric: appropriate mood/affect, intact judgment & insight - Neurologic Neurologic: CNII-XII intact, moves all extremities Results - Labs CBC & Chem 7: 01/24/17 08:58 01/24/17 08:58 Labs: Abnormal lab results 01/24/17 01/24/17 01/24/17 Range/Units 08:58 08:58 08:58 RBC 2.53 L (3.65-5.03) M/mm3 Hgb 8.4 L (10.1-14.3) gm/dl Hct 24.1 L (30.3-42.9) % MCH 33 H (28-32) pg MCHC 35 H (30-34) % Monocytes % (Manual) 12.0 H (0.0-7.3) % Monocytes # (Manual) 1.1 H (0.0-0.8) K/mm3 Carbon Dioxide 21 L (22-30) mmol/L BUN 5 L (7-17) mg/dL Calcium 7.4 L (8.4-10.2) mg/dL AST 47 H (5-40) units/L NT-Pro-B Natriuret Pep 943.5 H (0-450) pg/mL Albumin 2.6 L (3.9-5) g/dL Assessment and Plan - Patient Problems (1) Systolic CHF, acute Current Visit: Yes Status: Acute Plan to address problem: Cardiology consulted, fluid restriction, afterload reduction, monitor uop q shift to ensure negative fluid balance, echo, diuresis, (2) Accelerated hypertension Current Visit: Yes Status: Acute Plan to address problem: Monitor BP q shift, telemetry monitoring (3) Morbid obesity with BMI of 40.0-44.9, adult Current Visit: Yes Status: Acute Plan to address problem: Balanced idet, increased physical activity, outpatient bariatric surgery, (4) DVT prophylaxis Current Visit: Yes Status: Acute
[2017-01-24] MEDS ORDERED: PROVENTIL IH PRN (12:45)
[2017-01-24] MEDS ORDERED: TYLENOL PO PRN (12:45)
[2017-01-24] MEDS ORDERED: LASIX IV ONE (14:28)
--- NOTE | 2017-01-24 17:09 | Event Note ---
Date: 01/24/17 Detailed cardiology consultation dictated. A: #1: acute heart failure / ? xenia- CMP - pt intends to breast feed #2: accelerated HTN #3: anemia - [id number] #4: elevated DDimer - chest CTA negative for PE #5: obesity P: Obtain echo. Diuresis with IV lasix. Monitor renal indices. Initiate labetalol - safe in breast feeding. Son CODY NP / DR. MUNOZ
--- NOTE | 2017-01-24 17:35 | Consultation ---
History of Present Illness Consult date: 01/24/17 History of present illness: This patient is a 26 years old female who is status post primary low transverse section for labor at 34 weeks gestation with twins on 01/17/2017. She had uneventful care at [facility]. Her postoperative course has also been uneventful except for iron deficiency anemia for which she has been treated with iron sulfate. She was discharged home on postoperative day 3. This patient presented to the emergency department earlier this morning complaining of shortness of breath and swelling of the legs which started about 5 days ago. As per the patient, after she got home from the hospital, she started to feel very tired and when she walked around, she was not able to breathe. Those symptoms got better with rest. Her shortness got worse over the past 12 hours. In the emergency room, her initial blood pressure was 159/91, repeat blood pressure 147/83. Chest x-ray showed pulmonary congestion and pleural effusion. At that time, the differential diagnosis included pulmonary embolism, CHF and cardiomyopathy, and pre-eclampsia. Toxemia labs, cardiac enzymes, chemistry, urinalysis, chest spiral CT and abdomino-pelvic CAT scan were ordered. IV lasix was given. I went to see this patient in the ER. At that time, her BP was 147/83, HR 84, T98.8F, O2 sat 97% at RA and 99% on 10 L of oxygen. She she also reported severe pain at the incision site because she has not been able to take her pain medicine for 2 days because of her insurance not covering her meds. She was given hydrocodone from her mother to take for the past 2 days which help her with the pain. She denies any headache, visual disturbances, or right upper quadrant pain. vaginal bleeding has been very mild. Past medical history: denies Past surgical history: primary section for labor with twins. Allergies: denies any drug allergies. Social history: denies any smoking alcohol or drug abuse. HORTICULTURAL FARMWORKER history: unremarkable. Obstetric history: section 1 a week ago for twins with labor. Review of system: as above. Physical exam: General: no acute distress. Appears to be short of breath. Neurologic: Alert and oriented 3. Breast exam: deferred. Rectal exam: deferred. Pelvic exam: deferred. Extremities:+2 edema in both extremities, no Homans sign, no tenderness. Labs: Hemoglobin 8.4, hematocrit 34.1, platelets 275, white count 9.5. D-dimer> 10,000. AST 47, ALT 19, urine protein less than 15, calcium 7.4, sodium 141, potassium 4.8, BUN 5, creatinine 0.7, glucose 83. Chest CT: negative for pulmonary embolism. Abd/pelvic CT scan: negative for any acute pelvic abnormalities. Assessment/Plans: 1. 26 year old female , S/P primary low transverse section for labor with twins at 34 weeks one week ago with preeclampsia. Magnesium sulfate 4 g loading dose was given and will be continued at 1.5 g per hour. Will monitor magnesium level, blood pressure, urine output. 2. Dyspnea. Pulmonary embolism has been ruled out. Patient is afebrile, however pneumonia is possible. Possible CHF, cardiomyopathy. Medical consult in progress. Cardiology consult has been called. Echocardiogram has been ordered. Will continue oxygen via face mask and management as per cardiology. 3. Anemia continue iron sulfate twice a day. Past History - Obstetrical History : 1 Medications and Allergies Allergies Allergy/AdvReac Type Severity Reaction Status Date / Time No Known Allergies Allergy Verified 01/10/17 21:30 Home Medications Medication Instructions Recorded Confirmed Last Taken Type No Known Home Medications [No 01/11/17 01/24/17 Unknown History Reported Home Medications] Active Meds: Active Medications Acetaminophen (Tylenol) 650 mg PO Q4H PRN PRN Reason: Pain MILD(1-3)/Fever >100.5/JOHNSON Albuterol (Proventil) 2.5 mg IH Q4HRT PRN PRN Reason: Shortness Of Breath Furosemide (Lasix) 20 mg IV BID@0600,1800 SHILA Magnesium Sulfate (Magnesium Sulfate 40gm/1000ml) 40 gm in 1,000 mls @ 25 mls/ hr IV DIRECT SHILA PRN Reason: 1 GM/HR Last Admin: 01/24/17 16:12 Dose: 1 gm/hr, 25 mls/hr - Vital Signs Vital signs: Vital Signs Temp Pulse Resp BP Pulse Ox 98.8 F 82 28 H 144/87 97 01/24/17 08:02 01/24/17 08:02 01/24/17 08:02 01/24/17 08:02 01/24/17 08:02 Temp Pulse Resp BP Pulse Ox 98.8 F 70 23 137/77 100 01/24/17 08:02 01/24/17 14:45 01/24/17 12:30 01/24/17 14:45 01/24/17 12:30 Results Result Diagrams: 01/24/17 08:58 01/24/17 08:58 All other labs normal.
[2017-01-24] MEDS: NORMODYNE PO SCH (18:10)
[2017-01-24] MEDS: LASIX IV SCH (18:11)
--- NOTE | 2017-01-25 04:44 | Consultation ---
The patient in ED, room number is Emergency Room #1. Consultation is requested by Dr. Bhagat. HISTORY OF PRESENT ILLNESS: This is a 26-year-old female who presents to the Emergency Room with complaints of severe shortness of breath and orthopnea and edema for further evaluation and management. History is now obtained from the patient as well as patient's mother. The patient had done 1 week ago at 34 weeks of gestation. It was a twin . She tolerated the procedure well. But even prior to that, the patient has been noticing progressively worsening edema of both lower extremities. She has been having some shortness of breath as well as elevation of blood pressure. But after over the past 5 days, her dyspnea has progressively gotten worse. She has orthopnea too. Edema is also worse as per the patient. She has not monitored her blood pressure though. Then, 12 hours prior to admission, dyspnea was quite worse and so she came to the Emergency Room. She does complain of orthopnea. No definite history of any paroxysmal nocturnal dyspnea. No palpitations, claudications, dizziness or syncope. No chest pain. No fever, cough, chills. The patient denied any history of hypertension, hyperlipidemia or diabetes mellitus. No other significant illnesses in the past. SOCIAL HISTORY: She is a nonsmoker, nonalcoholic. ALLERGIES: None known to medications. FAMILY HISTORY: Positive for hypertension and diabetes. REVIEW OF SYSTEMS: CARDIOVASCULAR: As noted. RESPIRATORY: The patient does complain of shortness of breath. No cough. No GI or complaints at this time. PHYSICAL EXAMINATION: GENERAL: This is a 26-year-old female who is very obese and in no acute distress. The patient is now on oxygen. The patient is alert and oriented. SKIN: Warm and dry. HEENT: Pupils reacting. NECK: Supple. Both carotids well palpable. No definite bruits. No JVD. CHEST: Distant breath sounds. Prolonged expiration and expiratory rhonchi. Few rales at the lung bases. HEART: S1, S2 heard well. Not tachycardic. No S3 gallop. Grade 1/6 systolic murmur noted. ABDOMEN: Soft, obese and tender due to surgery. EXTREMITIES: Right now, she has trace to 1+ pitting edema bilaterally. No calf tenderness. Good pedal pulses. NEUROLOGIC: Evaluation was grossly within normal limits. RECTAL AND PELVIC: Examination was not done at this time. The patient had a CT scan of the chest done, which showed no evidence of pulmonary embolism. The patient's laboratory data showed hemoglobin of 8.4 with hematocrit of 24.1. The patient's BUN was 5 and creatinine 0.7, and potassium was 4.8. Chest x-ray was suggestive of congestive heart failure. IMPRESSION: 1. Congestive heart failure, probably systolic. 2. Hypertension. 3. Morbid obesity. 4. Status post section 1 week ago. This is a 26-year-old female who just underwent a a week ago, now presenting with worsening shortness of breath, edema of feet and elevated blood pressure for further evaluation and management. The patient underwent at 34 weeks of twin . 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 So for now, we will proceed with her Lasix for diuresis and monitor the renal function closely. The patient is also anemic. We will obtain an echocardiogram to assess the LV function. Meanwhile control the blood pressure too. If LV function shows systolic dysfunction, then obviously the patient has peripartum cardiomyopathy. If that is normal, then we will likely assume that uncontrolled hypertension contributed to her congestive heart failure. I have explained all this in detail to the patient as well as the family, answered all the questions, and do agree with the present management. We will continue to observe her closely. We will check the echocardiogram when it is done. The rest of the plan is as per orders. Thank very much for this consultation. We will follow the patient along with you. JOB# [id number] JOCELYN/ROSIBEL
[2017-01-25] MEDS: LASIX IV SCH ×2 (05:53→18:53)
[2017-01-25 06:39] LABS: Hematocrit 24.6 % (30.3-42.9); Hemoglobin 8.6 gm/dl (10.1-14.3); Mean Corpuscular HGB Conc 35 % (30-34); Mean Corpuscular Hemoglobin 33 pg (28-32); Mean Corpuscular Volume 95 fl (79-97); Platelet Count 271 K/mm3 (140-440); Red Blood Count 2.58 M/mm3 (3.65-5.03); Red Cell Distribution Width 14.7 % (13.2-15.2); White Blood Count 8.3 K/mm3 (4.5-11.0)
[2017-01-25 06:53] LABS: Anion Gap 18 mmol/L; BUN/Creatinine Ratio 4; Blood Urea Nitrogen 3 mg/dL (7-17); Carbon Dioxide 23 mmol/L (22-30); Chloride 104.7 mmol/L (98-107); Glucose 95 mg/dL (65-100); Sodium 143 mmol/L (137-145)
[2017-01-25 06:56] LABS: Potassium 3.1 mmol/L (3.6-5.0)
[2017-01-25] MEDS: NORMODYNE PO SCH ×2 (09:25→22:52)
[2017-01-25] MEDS ORDERED: K-DUR PO NR (10:00)
--- NOTE | 2017-01-25 13:30 | Progress Note ---
Assessment and Plan Assessment: Acute heart failure - no CMP or diastolic dysfunction visualized on echo. Accelerated HTN - improved Moderate MR Anemia - iron deficiency Hypokalemia Mild pulmonary HTN Elevated DDimer - chest CTA negative for PE Obesity Plan: Echo reviewed - EF 50-55%, moderate MR, mild TR, mild pulmonary HTN, RVSP 42mmHg. Do not suspect xenia- CMP at this time. Suspect HF secondary to accelerated HTN and/or ? preeclampsia and/or moderate MR. Cont diuresis with IV lasix. Replete K+. Repeat BMP in AM. Cont labetalol - safe in breast feeding. Consider conversion of diuretics from IV to PO in AM. Possible d/c home as early as tomorrow afternoon. Pt will require close OP monitoring. Recommend repeat echo in 6 months for re- evaluation of moderate MR. Assessment and plan reviewed with pt at bedside. The patient has been seen in conjunction with Dr. Benítez who agrees with the assessment and plan of care. Subjective Date of service: 01/25/17 Principal diagnosis: HF Interval history: Pt resting comfortably, states she is feeling a little better. Objective Last Vital Signs Temp 97.7 F 01/25/17 08:44 Pulse 80 01/25/17 09:25 Resp 18 01/25/17 08:44 BP 130/82 01/25/17 09:25 Pulse Ox 98 01/25/17 08:44 - Physical Examination General: Appears Well HEENT: Positive: PERRL, Normocephaly, Mucus Membranes Moist Neck: Positive: neck supple, trachea midline Cardiac: Positive: Reg Rate and Rhythm, S1/S2 Lungs: Positive: clear to auscultation Neuro: Positive: Grossly Intact, Cranial Nerve 2-12 Intact Abdomen: Positive: Unremarkable, Soft, Active Bowel Sounds, Other ( site) Skin: Negative: Rash Musculoskeletal: Normal Range of Motion Extremities: Present: edema (trace BLE ) - Labs and Meds CBC 01/25/17 Range/Units 05:46 WBC 8.3 (4.5-11.0) K/mm3 RBC 2.58 L (3.65-5.03) M/mm3 Hgb 8.6 L (10.1-14.3) gm/dl Hct 24.6 L (30.3-42.9) % Plt Count 271 (140-440) K/mm3 Comprehensive Metabolic Panel 01/25/17 Range/Units 05:46 Sodium 143 (137-145) mmol/L Potassium 3.1 L D (3.6-5.0) mmol/L Chloride 104.7 (98-107) mmol/L Carbon Dioxide 23 (22-30) mmol/L BUN 3 L (7-17) mg/dL Creatinine 0.7 (0.7-1.2) mg/dL Glucose 95 (65-100) mg/dL Calcium 7.0 L (8.4-10.2) mg/dL - Imaging and Cardiology EKG: image reviewed Echo: report reviewed - Telemetry EKG Rhythm: Sinus Rhythm
--- NOTE | 2017-01-25 13:58 | Progress Note ---
Subjective - Subjective Date of service: 01/25/17 Principal diagnosis: HF Objective - Vital Signs Vital Signs: Vital Signs - 12hr 01/25/17 01/25/17 01/25/17 04:30 08:44 09:25 Temperature 98.5 F 97.7 F Pulse Rate 75 81 80 Respiratory 18 18 Rate Blood Pressure 130/82 130/82 Blood Pressure 130/78 [Right] O2 Sat by Pulse 98 98 Oximetry - Labs Labs: Abnormal Labs 01/24/17 01/25/17 01/25/17 22:32 05:46 05:46 RBC 2.58 L Hgb 8.6 L Hct 24.6 L MCH 33 H MCHC 35 H Potassium 3.1 L D BUN 3 L Calcium 7.0 L Magnesium 3.90 H Laboratory Results - last 24 hr 01/24/17 01/25/17 01/25/17 22:32 05:46 05:46 WBC 8.3 RBC 2.58 L Hgb 8.6 L Hct 24.6 L MCV 95 MCH 33 H MCHC 35 H RDW 14.7 Plt Count 271 Sodium 143 Potassium 3.1 L D Chloride 104.7 Carbon Dioxide 23 Anion Gap 18 BUN 3 L Creatinine 0.7 Estimated GFR > 60 BUN/Creatinine Ratio 4 Glucose 95 Calcium 7.0 L Magnesium 3.90 H
--- NOTE | 2017-01-25 16:50 | Progress Note ---
Assessment and Plan /Acute heart failure - no CMP or diastolic dysfunction visualized on echo. - Echo reviewed - EF 50-55%, moderate MR, mild TR, mild pulmonary HTN, RVSP 42mmHg - Suspect HF secondary to accelerated HTN and/or ? preeclampsia and/or moderate MR. /Accelerated HTN - improved with current meds(labetalol) /Mitral regurgitation -Cardiology Recommended repeat echo in 6 months for re-evaluation of moderate MR. /Iron deficiency anemia - cont to replace iron /Hypokalemia - replete and monitor /Elevated DDimer - chest CTA negative for PE /Obesity - counselled for diet and exercise and medically stable /Acute respiratory failure - Likely from flash pulmonary edema from malignant hypertension and MR - Continue supplemental oxygen as needed - Treat underlying cause - We'll repeat chest x-ray Radiological data: CT abdomen and pelvis on 01/24/2017 showed uterus, cholelithiasis and no other acute finding CTA chest on 01/24/2017 showed mild pulmonary edema bilateral and bilateral small pleural effusion Chest x-ray on 01/24/2017 showed central pulmonary edema and small left pleural effusion Brief history: Subjective Date of service: 01/25/17 Principal diagnosis: HF Interval history: Patient seen and examined. Medical records and medication list reviewed. No acute event overnight noted by the RN. Patient continued to complain of weakness and short of breath on exertion. Discussed plan of care at bedside with patient. Objective - Exam Narrative Exam: GENERAL: well-developed morbidly obese -[place] female lying on bed appeared to be in no discomfort. HEENT: Normocephalic. Atraumatic. No conjunctival congestion or icterus. Patient has moist mucous membranes. NECK: Supple. Trachea midline. CHEST/LUNGS: Clear to auscultated bilaterally, breathing nonlabored. No wheezes crackles or rhonchi. HEART/CARDIOVASCULAR: Regular in rate and rhythm. S1 and S2 positive. ABDOMEN: Abdomen is soft, nontender. Patient has normal bowel sounds. SKIN: There is no rash. Warm and dry. NEURO: No focal motor deficit. Follows command. MUSCULOSKELETAL: No joint effusion or tenderness. EXTRIMITY: No edema, no cyanosis or clubbing. PSYCH: Cooperative. - Constitutional Vitals: Vital Signs - 12hr 01/25/17 01/25/17 01/25/17 08:44 09:25 10:00 Temperature 97.7 F Pulse Rate 81 80 Respiratory 18 Rate Blood Pressure 130/82 130/82 O2 Sat by Pulse 98 100 Oximetry - Labs CBC & Chem 7: 01/25/17 05:46 01/26/17 05:13 Labs: Abnormal lab results 01/24/17 01/25/17 01/25/17 Range/Units 22:32 05:46 05:46 RBC 2.58 L (3.65-5.03) M/mm3 Hgb 8.6 L (10.1-14.3) gm/dl Hct 24.6 L (30.3-42.9) % MCH 33 H (28-32) pg MCHC 35 H (30-34) % Potassium 3.1 L D (3.6-5.0) mmol/L BUN 3 L (7-17) mg/dL Calcium 7.0 L (8.4-10.2) mg/dL Magnesium 3.90 H (1.7-2.3) mg/dL
--- NOTE | 2017-01-25 22:09 | Physician Progress Note ---
OBSTETRIC PROGRESS NOTE This patient is a 26-year-old female 1, para 0-1-0-2, who is status post primary low-transverse section for labor with twins at 34 weeks' gestation on 01/17/2017. She had an uneventful postoperative course and was discharged home on postoperative day #3. On discharge, she had a history of anemia for which she was given iron sulfate twice a day. As per the patient, after she got home, 24 hours later, she started to experience shortness of breath. When she rested, the symptoms went away. Yesterday, she presented to the Emergency Room complaining of worsening shortness of breath and that started to happen even when she was lying down. She denies any headache, any chest pain, any dizziness, any blurry vision. Upon presentation to the Emergency Room, her blood pressure was found to be elevated at 159/91. Repeat blood pressure was 147/83. She did have a +2 bilateral pedal edema. At that time, she was diagnosed with preeclampsia and magnesium sulfate was started. She also had a chest x-ray, which showed pleural effusion and some pulmonary congestion. Labs were sent, which showed elevated liver function tests, elevated D-dimer in the 10,000. Pulmonary embolism was in the differential diagnosis and a spiral CAT scan was ordered. It was negative for pulmonary embolism. Medical consult was obtained while the patient was in the Emergency Room. At that time, IV Lasix was started. The patient was given oxygen via CPAP and her head was elevated while she was lying in bed. She continued to have the orthopnea throughout the afternoon and the same management was continued and she was admitted to the Cardiology floor. Cardiac consult was done later in the day and an echocardiogram was ordered. The echocardiogram was done through the 01/25/2017 and it did showed mild mitral regurgitation and tricuspid regurgitation with a left ventricular ejection fraction 50-55%, which is considered low in the normal range. Cardiology came again to see this patient this morning and they recommended to continue the current management. I saw the patient this morning and she was feeling much better. She was able to lie down more than she was doing yesterday and her dyspnea has significantly lessened. She was tolerating a regular diet. She denies any headache, any visual changes, any chest pain this morning. PHYSICAL EXAMINATION: VITAL SIGNS: Temperature 98.5 degrees Fahrenheit, heart rate 75, respiration 18, blood pressure 130/78. GENERAL: No acute distress. HEENT: Normal. NEUROLOGICAL: Alert, awake, oriented x 3. CHEST: Clear to auscultation bilaterally. ABDOMEN: Soft. Mild incisional tenderness. The incision is clean and dry. Zoe were intact. They were removed this morning. No drainage from the incision. PELVIC: Deferred. EXTREMITIES: Showed pedal edema, decreased to a +1 today. No calf tenderness. No Homans sign. BREASTS: Deferred. RECTAL: Deferred. LABORATORY DATA: Hemoglobin 8.6, hematocrit 24.6, white count 8.3, platelets 271. Magnesium level 3.9, potassium 3.1, calcium is 7. Echocardiogram findings as above. Chest CAT scan negative. Chest x-ray, mild pulmonary edema. D-dimer is over 10,000. ASSESSMENT: 1. A 26-year-old female G1, P0-1-0-2, status post low-transverse primary section for labor with twins at 34 weeks 1 week ago, admitted with preeclampsia. Magnesium sulfate was given. The magnesium will be discontinued after 24 hours, which will be after 6 p.m. today. We will continue to monitor her blood pressure, her magnesium level and urine output. 2. Dyspnea. Symptoms have significantly gotten better today. Pulmonary embolism has been ruled out. Oxygen saturation has been improved. The patient remains afebrile. At this time, cardiomyopathy and possible acute congestive heart failure are the differential diagnoses. Medical consult was done. Cardiological consult was done. Echocardiogram was followed by them that was discussed with the patient: The plan is to continue the oxygen and bed rest and continue intravenous Lasix. They will be seeing the patient later today. 3. Anemia. We will continue the patient on iron sulfate. 4. Hypokalemia and hypocalcemia. These are being replaced as order from Internal Medicine. JOB# [id number] BECCA/ROSIBEL RIVERA
[2017-01-26 06:27] LABS: Anion Gap 16 mmol/L; BUN/Creatinine Ratio 5; Blood Urea Nitrogen 4 mg/dL (7-17); Calcium 6.5 mg/dL (8.4-10.2); Carbon Dioxide 28 mmol/L (22-30); Chloride 99.3 mmol/L (98-107); Glucose 87 mg/dL (65-100); Potassium 3.1 mmol/L (3.6-5.0); Sodium 140 mmol/L (137-145)
[2017-01-26] MEDS: LASIX IV SCH (06:55)
[2017-01-26] MEDS: NORMODYNE PO SCH (09:55)
[2017-01-26 09:57] VITALS: BP 127/76
--- NOTE | 2017-01-26 11:19 | Progress Note ---
Assessment and Plan Assessment: Acute heart failure - nearint/at euvolemia; no CMP or diastolic dysfunction visualized on echo; Suspect HF secondary to accelerated HTN and/or ? preeclampsia and/or moderate MR. Accelerated HTN - improved Moderate MR Anemia - iron deficiency; H/H stable Hypokalemia Mild pulmonary HTN Elevated DDimer - chest CTA negative for PE Obesity Plan: Convert IV diuresis to PO lasix, 40mg daily. Cont labetalol - safe in breast feeding. Pt will require close OP monitoring. Recommend repeat echo in 6 months for re- evaluation of moderate MR. Currently stable cardiac status. Pt may discharge home from cardiology standpoint. Follow up in our [place] office with Dr. Benítez on 01/27/2017 @ 2:00PM. The patient has been seen in conjunction with Dr. Benítez who agrees with the assessment and plan of care. Subjective Date of service: 01/26/17 Principal diagnosis: HF Interval history: Pt resting comfortably, no current complaints. VSS. Objective Last Vital Signs Temp 98.4 F 01/26/17 04:19 Pulse 86 01/26/17 09:55 Resp 18 01/26/17 08:53 BP 127/76 01/26/17 09:55 Pulse Ox 100 01/26/17 08:53 - Physical Examination General: Appears Well HEENT: Positive: PERRL, Normocephaly, Mucus Membranes Moist Neck: Positive: neck supple, trachea midline Cardiac: Positive: Reg Rate and Rhythm, S1/S2 Lungs: Positive: clear to auscultation Neuro: Positive: Grossly Intact, Cranial Nerve 2-12 Intact Abdomen: Positive: Unremarkable, Soft, Active Bowel Sounds, Other ( site) Skin: Negative: Rash Musculoskeletal: Normal Range of Motion Extremities: Present: edema (trace) - Labs and Meds Comprehensive Metabolic Panel 01/26/17 Range/Units 05:13 Sodium 140 (137-145) mmol/L Potassium 3.1 L (3.6-5.0) mmol/L Chloride 99.3 (98-107) mmol/L Carbon Dioxide 28 (22-30) mmol/L BUN 4 L (7-17) mg/dL Creatinine 0.8 (0.7-1.2) mg/dL Glucose 87 (65-100) mg/dL Calcium 6.5 L (8.4-10.2) mg/dL - Imaging and Cardiology EKG: image reviewed Echo: report reviewed (EF 50-55%, moderate MR, mild TR, mild pulmonary HTN, RVSP 42mmHg. Do not suspect xenia- CMP at this time) - Telemetry EKG Rhythm: Sinus Rhythm
--- NOTE | 2017-01-26 11:40 | Discharge Summary ---
Providers - Providers Date of Admission: 01/24/17 12:45 Date of discharge: 01/26/17 Attending physician: RADU LARA Primary care physician: [employer] Hospitalization Condition: Good Hospital course: /Acute heart failure - no CMP or diastolic dysfunction visualized on echo. - Echo reviewed - EF 50-55%, moderate MR, mild TR, mild pulmonary HTN, RVSP 42mmHg - Suspect HF secondary to accelerated HTN and/or ? preeclampsia and/or moderate MR. /Accelerated HTN - improved with current meds(labetalol) /Mitral regurgitation -Cardiology Recommended repeat echo in 6 months for re-evaluation of moderate MR. /Iron deficiency anemia - cont to replace iron /Hypokalemia - replete and monitor /Elevated DDimer - chest CTA negative for PE /Obesity - counselled for diet and exercise and medically stable /Acute respiratory failure - Likely from flash pulmonary edema from malignant hypertension and MR - Continue supplemental oxygen as needed - Treat underlying cause - We'll repeat chest x-ray Radiological data: CT abdomen and pelvis on 01/24/2017 showed uterus, cholelithiasis and no other acute finding CTA chest on 01/24/2017 showed mild pulmonary edema bilateral and bilateral small pleural effusion Chest x-ray on 01/24/2017 showed central pulmonary edema and small left pleural effusion Brief history: Time spent for discharge: 32 minutes Core Measure Documentation - Palliative Care Palliative Care/ Comfort Measures: Not Applicable - Core Measures Any of the following diagnoses?: none Exam - Physical Exam Narrative exam: GENERAL: well-developed morbidly obese -[place] female lying on bed appeared to be in no discomfort. HEENT: Normocephalic. Atraumatic. No conjunctival congestion or icterus. Patient has moist mucous membranes. NECK: Supple. Trachea midline. CHEST/LUNGS: Clear to auscultated bilaterally, breathing nonlabored. No wheezes crackles or rhonchi. HEART/CARDIOVASCULAR: Regular in rate and rhythm. S1 and S2 positive. ABDOMEN: Abdomen is soft, nontender. Patient has normal bowel sounds. SKIN: There is no rash. Warm and dry. NEURO: No focal motor deficit. Follows command. MUSCULOSKELETAL: No joint effusion or tenderness. EXTRIMITY: No edema, no cyanosis or clubbing. PSYCH: Cooperative. - Constitutional Vitals: Temp Pulse Resp BP Pulse Ox 98.4 F 86 18 127/76 100 01/26/17 04:19 01/26/17 09:55 01/26/17 08:53 01/26/17 09:55 01/26/17 08:53 Plan Activity: advance as tolerated Weight Bearing Status: Weight Bear as Tolerated Diet: low fat, low salt Wound: keep clean and dry Follow up with: PRIMARY CARE, [Primary Care Provider] - 3-5 Days Prescriptions: Ferrous Sulfate [Feosol 325 MG tab] 325 mg PO BID #60 tablet Furosemide [Lasix TAB] 40 mg PO QDAY #30 tablet Labetalol [Normodyne TAB] 100 mg PO BID #60 tablet Potassium Chloride [K-Dur] 10 meq PO QDAY #30 tablet
[2017-01-26] MEDS ORDERED: K-DUR PO NR (12:00)
[2017-01-26] MEDS ORDERED: FEOSOL PO SCH (12:00)
--- NOTE | 2017-01-26 22:42 | Physician Progress Note ---
SUBJECTIVE: This patient is a 26-year-old female 1, para 0-1-0-2 who is status post primary section on the 01/17/2017 for a history of labor with twin gestation. Postoperatively, she did very well and was discharged home on postoperative day #3. A few days later, she developed severe dyspnea and has not been able to breathe very well. She decided to come to the Emergency Room. On arrival to the Emergency Room on 01/24/2017, she had orthopnea and pleural effusion on chest x-ray. Spiral CT did rule out a pulmonary embolism. At that time, she was admitted. Her blood pressure was elevated and she was given magnesium sulfate for preeclampsia. Her blood pressure eventually got better and the magnesium sulfate was discontinued yesterday evening after 24 hours. Today, she feels much better. She is able to breathe and sitting and standing up without any difficulty. She did have Cardiology followup. She had an echo yesterday, which was normal except for mild tricuspid and mitral regurgitation and normal ejection fraction. Cardiology is planning on discharging her home sometime this week. OBJECTIVE: VITAL SIGNS: Temperature 98.4 degrees Fahrenheit, heart rate 80, respirations 18, blood pressure 123/76. GENERAL: No acute distress. ABDOMEN: Soft, mild incisional tenderness. Uterus is firm. Incision is clean, dry, no drainage. [place] were removed yesterday. PELVIC: Deferred. RECTAL: Deferred. BREASTS: Deferred. EXTREMITIES: +1 edema, no calf tenderness, no Homans sign. LABORATORY DATA: Hemoglobin 8.6, hematocrit 24.6. ASSESSMENT: A 26-year-old female, G1, P 0-1-0-2, status post section for twins with labor on 01/17/2017, who was admitted with severe dyspnea and preeclampsia. She was treated with magnesium sulfate, which was discontinued yesterday. Blood pressure has been stable. Cardiology has been monitoring the patient. An echocardiogram was done and she is scheduled to have a followup echo with Cardio as an outpatient. Cardiology is planning on discharging her home today. JOB# [id number] KV/NTS
[2017-01-27] MEDS ORDERED: LASIX PO SCH (10:00)
== END 2017-01-26 16:36 | disposition home or self-care (01) | DRG 776 ==
LOC: ED 07:58 → 4A 12:45
PROVIDERS: ADMIT Internal Medicine; ATTEND Internal Medicine
DX: O10.13 Pre-existing hypertensive heart disease complicating the puerperium (principal); J96.00 Acute respiratory failure, unspecified whether with hypoxia or hypercapnia; I50.21 Acute systolic (congestive) heart failure; O99.43 Diseases of the circulatory system complicating the puerperium; Z68.41 Body mass index [BMI] 40.0-44.9, adult; I42.9 Cardiomyopathy, unspecified; I11.0 Hypertensive heart disease with heart failure; I34.0 Nonrheumatic mitral (valve) insufficiency; D50.9 Iron deficiency anemia, unspecified; O99.53 Diseases of the respiratory system complicating the puerperium; E66.01 Morbid (severe) obesity due to excess calories; O99.285 Endocrine, nutritional and metabolic diseases complicating the puerperium; O99.215 Obesity complicating the puerperium; O90.81 Anemia of the puerperium; I27.20 Pulmonary hypertension, unspecified; E87.6 Hypokalemia; E83.51 Hypocalcemia; Z82.49 Family history of ischemic heart disease and other diseases of the circulatory system; Z83.3 Family history of diabetes mellitus; Z71.3 Dietary counseling and surveillance
CPT/HCPCS: 36415; 71020; 71275; 74177; 80048; 80074; 81001; 83735; 83880; 84484; 85007; 85025; 85027; 85379; 85610; 85730; 93005; 93010; 93306; 94760; 96365; 96367; 96375; 99291; J0360; J1940; J3010; J3475; Q9967

== ENCOUNTER 2017-02-13 08:03 | Inpatient (IN) | payer MEDICAID ==
[2017-02-13] MEDS ORDERED: MAGNESIUM SULFATE 2GM/50ML 2 GM/50 ML BAG IV ONE (08:25)
[2017-02-13] MEDS ORDERED: NORMODYNE IV ONE (08:28)
--- NOTE | 2017-02-13 08:29 | Emergency Department Report ---
ED General Adult HPI - General Chief complaint: Dyspnea/Respdistress Stated complaint: BRENDA Time Seen by Provider: 02/13/17 08:15 Source: patient, RN notes reviewed, old records reviewed Mode of arrival: Ambulatory Limitations: Physical Limitation - History of Present Illness Initial comments: This is a 26-year-old female, 1, para 0102, status post section on January 17, recently admitted to the hospital for respiratory failure is likely secondary from flash pulmonary edema, from mitral regurgitation and malignant hypertension, had an echocardiogram which demonstrated an ejection fraction 50-55%, pulmonary hypertension, suspected acute heart failure secondary to hypertension and/or possible preeclampsia Patient coming today with chest pain, shortness of breath. She reports her chest pain is central, and does not radiate to the back, arms or neck. There is no leg pain, there is no leg swelling, patient had a negative CT scan of the chest for pulmonary embolus the last time she was at this hospital. Patient was started on BiPAP therapy, and started on magnesium, as well as IV labetalol, and she reports that these interventions improved her symptoms. She declined an ABG. The patient also indicates compliance with her outpatient medications, and denies dietary indiscretions. -: Gradual Location: chest Quality: aching Consistency: constant Improves with: medication, rest Worsens with: movement Associated Symptoms: chest pain, shortness of breath, weakness - Related Data Previous Rx's Medication Instructions Recorded Last Taken Type Ferrous Sulfate [Feosol 325 MG tab] 325 mg PO BID #60 tablet 01/26/17 Unknown Rx Furosemide [Lasix TAB] 40 mg PO QDAY #30 tablet 01/26/17 Unknown Rx Labetalol [Normodyne TAB] 100 mg PO BID #60 tablet 01/26/17 Unknown Rx Potassium Chloride [K-Dur] 10 meq PO QDAY #30 tablet 01/26/17 Unknown Rx Allergies Allergy/AdvReac Type Severity Reaction Status Date / Time No Known Allergies Allergy Verified 01/10/17 21:30 ED Review of Systems ROS: Stated complaint: BRENDA Other details as noted in HPI Constitutional: malaise Eyes: denies: vision change ENT: congestion Respiratory: cough, shortness of breath Cardiovascular: chest pain Gastrointestinal: denies: vomiting Genitourinary: as per HPI. denies: dysuria Musculoskeletal: denies: arthralgia Skin: denies: lesions Neurological: weakness Psychiatric: anxiety ED Past Medical Hx - Past Medical History Hx Hypertension: No Hx Congestive Heart Failure: No Hx Diabetes: No Hx Deep Vein Thrombosis: No Hx Renal Disease: No Hx Sickle Cell Disease: No Hx Seizures: No Hx Asthma: No Hx COPD: No Hx HIV: No - Surgical History Additional Surgical History: - Social History Smoking Status: Never Smoker Substance Use Type: None - Medications Home Medications: Home Medications Medication Instructions Recorded Confirmed Last Taken Type Ferrous Sulfate [Feosol 325 MG tab] 325 mg PO BID #60 tablet 01/26/17 Unknown Rx Furosemide [Lasix TAB] 40 mg PO QDAY #30 tablet 01/26/17 Unknown Rx Labetalol [Normodyne TAB] 100 mg PO BID #60 tablet 01/26/17 Unknown Rx Potassium Chloride [K-Dur] 10 meq PO QDAY #30 tablet 01/26/17 Unknown Rx ED Physical Exam - General Limitations: No Limitations General appearance: alert, in distress - Head Head exam: Present: atraumatic, normocephalic - Eye Eye exam: Present: normal appearance, EOMI - ENT ENT exam: Present: normal exam, normal orophraynx, mucous membranes moist, normal external ear exam - Neck Neck exam: Present: normal inspection, full ROM - Respiratory Respiratory exam: Present: respiratory distress, rales, rhonchi - Cardiovascular Cardiovascular Exam: Present: regular rate, normal rhythm, normal heart sounds. Absent: bradycardia, tachycardia, irregular rhythm, systolic murmur, diastolic murmur, rubs, gallop - GI/Abdominal GI/Abdominal exam: Present: soft, normal bowel sounds. Absent: distended, tenderness, guarding, rebound, rigid, pulsatile mass - Extremities Exam Extremities exam: Present: normal inspection, full ROM, normal capillary refill. Absent: calf tenderness - Back Exam Back exam: Present: normal inspection, full ROM. Absent: tenderness, CVA tenderness (R), CVA tenderness (L), muscle spasm, paraspinal tenderness, vertebral tenderness - Neurological Exam Neurological exam: Present: alert, oriented X3, other (Extraocular movements intact. Tongue midline. No facial droop. Facial sensation intact to light touch in the V1, V2, V3 distribution bilaterally. 5 and 5 strength in 4 extremities.. Sensation is intact to light touch in 4 extremities.). Absent: motor sensory deficit - Psychiatric Psychiatric exam: Present: normal affect, normal mood - Skin Skin exam: Present: warm, dry, intact, normal color. Absent: rash ED Course Vital Signs 02/13/17 02/13/17 02/13/17 08:05 08:18 08:21 Temperature 98.9 F Pulse Rate 96 H 77 91 H Respiratory 32 H 14 16 Rate Blood Pressure 168/85 173/94 O2 Sat by Pulse 82 L 89 90 Oximetry 02/13/17 02/13/17 02/13/17 08:30 08:40 08:41 Temperature Pulse Rate 85 88 68 Respiratory 22 24 21 Rate Blood Pressure 173/89 173/89 O2 Sat by Pulse 93 98 99 Oximetry 02/13/17 02/13/17 02/13/17 08:47 08:51 09:01 Temperature Pulse Rate 83 66 72 Respiratory 12 16 Rate Blood Pressure 173/89 173/89 173/89 O2 Sat by Pulse 98 97 Oximetry 02/13/17 09:10 Temperature Pulse Rate 77 Respiratory 24 Rate Blood Pressure 146/96 O2 Sat by Pulse 97 Oximetry - Reevaluation(s) Reevaluation #1: 02/13/17 10:32 looks better case d/w ELECTRICAL ASSEMBLY SUPERVISOR Dr Adames who agrees with plan and will see the patient ED Medical Decision Making - Lab Data Result diagrams: 02/13/17 08:23 02/13/17 08:23 Vital Signs 02/13/17 02/13/17 02/13/17 08:05 08:40 08:47 Temperature 98.9 F Pulse Rate 96 H 88 83 Respiratory 32 H 24 Rate Blood Pressure 168/85 173/89 O2 Sat by Pulse 82 L 98 Oximetry Lab Results 02/13/17 02/13/17 02/13/17 Range/Units 08:23 08:23 08:23 WBC 6.8 (4.5-11.0) K/mm3 RBC 3.36 L (3.65-5.03) M/mm3 Hgb 10.4 (10.1-14.3) gm/dl Hct 31.2 (30.3-42.9) % MCV 93 (79-97) fl MCH 31 (28-32) pg MCHC 33 (30-34) % RDW 14.6 (13.2-15.2) % Plt Count 406 (140-440) K/mm3 PT 14.0 (12.2-14.9) Sec. INR 1.03 (0.87-1.13) APTT 34.1 (24.2-36.6) Sec. Sodium 143 (137-145) mmol/L Potassium 3.6 (3.6-5.0) mmol/L Chloride 106.4 (98-107) mmol/L Carbon Dioxide 24 (22-30) mmol/L Anion Gap 16 mmol/L BUN 9 (7-17) mg/dL Creatinine 0.8 (0.7-1.2) mg/dL Estimated GFR > 60 ml/min BUN/Creatinine Ratio 11 % Glucose 92 (65-100) mg/dL Calcium 8.3 L (8.4-10.2) mg/dL Total Bilirubin 0.30 (0.1-1.2) mg/dL AST 16 (5-40) units/L ALT 11 (7-56) units/L Troponin T < 0.010 (0.00-0.029) ng/mL NT-Pro-B Natriuret Pep 1297 H (0-450) pg/mL Total Protein 7.1 (6.3-8.2) g/dL Albumin 3.5 L (3.9-5) g/dL Albumin/Globulin Ratio 1.0 % - EKG Data -: EKG Interpreted by Me - EKG Data 02/13/17 09:12 Normal sinus, 77 beats per minute, normal axis, normal intervals, not morphologically consistent with STEMI, but compared to prior EKG, appears unchanged. - Radiology Data Radiology results: report reviewed, image reviewed X-ray of the chest suggests left lower lobe infiltrate - Medical Decision Making Differential diagnosis: preeclampsia, flash pulmonary edema, pneumonia, acute coronary syndrome Assessment and plan: 26-year-old female, evaluated by me in the past, suspected history of preeclampsia/ cardiomyopathy, history of flash pulmonary edema, with chest pain, shortness of breath, rales, difficulty breathing. Her clinical presentation today is very similar to when I previously evaluated the patient. Patient has had a negative CT scan of the chest, therefore I think pulmonary embolus is unlikely. BNP is elevated, x-ray the chest suggests left lower lobe pneumonia, case is discussed with nursing feller buncher operator for Dr. Adames; Gynecology will follow and make recommendations for possible preeclampsia. Blood pressure is improved at this point in time after BiPAP therapy and labetalol, it is currently 146 over 90s, patient is currently on magnesium. Cultures will be drawn, patient will be treated with ceftriaxone and azithromycin, she will also be given Lasix. Case is presented to the Hospital physician, Dr. Chamorro, who accepts the patient to the medical service. Critical Care Time: Yes Critical care time in (mins) excluding proc time.: 35 Critical care attestation.: If time is entered above; I have spent that time in minutes in the direct care of this critically ill patient, excluding procedure time. ED Disposition Clinical Impression: Systolic CHF, acute, Dyspnea, cardiomyopathy Disposition: OP ADMIT IP TO THIS HOSP Is pt being admited?: Yes Does the pt Need Aspirin: Yes Condition: Good Referrals: PRIMARY CARE, [Primary Care Provider] - 3-5 Days
[2017-02-13 08:43] LABS: Hematocrit 31.2 % (30.3-42.9); Hemoglobin 10.4 gm/dl (10.1-14.3); Mean Corpuscular HGB Conc 33 % (30-34); Mean Corpuscular Hemoglobin 31 pg (28-32); Mean Corpuscular Volume 93 fl (79-97); Platelet Count 406 K/mm3 (140-440); Red Blood Count 3.36 M/mm3 (3.65-5.03); Red Cell Distribution Width 14.6 % (13.2-15.2); White Blood Count 6.8 K/mm3 (4.5-11.0)
[2017-02-13 08:54] LABS: INR 1.03 (0.87-1.13)
[2017-02-13 08:55] LABS: Partial Thromboplastin Time 34.1 Sec. (24.2-36.6)
[2017-02-13 08:58] LABS: Alanine Aminotransferase 11 units/L (7-56); Albumin 3.5 g/dL (3.9-5); Anion Gap 16 mmol/L; BUN/Creatinine Ratio 11; Blood Urea Nitrogen 9 mg/dL (7-17); Calcium 8.3 mg/dL (8.4-10.2); Carbon Dioxide 24 mmol/L (22-30); Chloride 106.4 mmol/L (98-107); Glucose 92 mg/dL (65-100); Potassium 3.6 mmol/L (3.6-5.0); Sodium 143 mmol/L (137-145); Total Protein 7.1 g/dL (6.3-8.2)
--- NOTE | 2017-02-13 08:59 | XRay Report ---
FINAL REPORT EXAM: XR CHEST 1V AP HISTORY: dyspnea TECHNIQUE: AP portable view(s) of the chest obtained. PRIORS: None. FINDINGS: No mediastinal shift. Cardiac silhouette is not enlarged. No pneumothorax or effusion. Ill-defined opacity in the left lower lung. No acute skeletal finding. IMPRESSION: Ill-defined left lower lung airspace disease. PA and lateral chest radiographic follow-up to resolution are recommended.
[2017-02-13] MEDS ORDERED: TRIDIL DRIP 50MG/250ML 50 MG/250 ML BOTTLE IV SCH (09:00)
[2017-02-13] MEDS ORDERED: MAGNESIUM SULFATE 40GM/1000ML 40 GM/1,000 ML BAG IV SCH (09:00)
[2017-02-13] MEDS ORDERED: ROCEPHIN/NS 1 GM/50 ML 1 GM/50 ML BAG IV ONE (09:04)
[2017-02-13] MEDS ORDERED: ZITHROMAX 500 MG in NACL 0.9% 250ML 250 ML IV ONE (09:04)
[2017-02-13] MEDS ORDERED: APRESOLINE IV ONE (09:12)
[2017-02-13] MEDS ORDERED: LASIX IV ONE (09:15)
[2017-02-13] MEDS ORDERED: MILK OF MAGNESIA PO PRN (10:07)
[2017-02-13] MEDS ORDERED: ZOFRAN IV PRN (10:07)
[2017-02-13] MEDS ORDERED: TYLENOL PO PRN (10:07)
[2017-02-13] MEDS ORDERED: PROVENTIL IH PRN ×3 (10:07→10:34)
[2017-02-13] MEDS ORDERED: DULCOLAX PR PRN (10:07)
[2017-02-13 10:18] LABS: Alkaline Phosphatase 69 units/L (35-129)
--- NOTE | 2017-02-13 10:46 | History and Physical Report ---
History of Present Illness Date of examination: 02/13/17 Date of admission: 02/13/17 Chief complaint: SOB History of present illness: Patient is a 26 years old obese -[place] woman, , status post 01/17/17, discharge on day 3 postoperatively and readmitted a week later for acute respiratory failure likely secondary to flash pulmonary edema due to malignant hypertension/acute heart failure; concern for preeclampsia and she received magnesium sulfate; ECHO showed preserved EF 50-55% , moderate MR, mild pulmonary hypertension; CTA was negative for PE; cardiology was consulted and she was discharged on labetalol and lasix. Now almost a month later returns for severe shortness of breath associated with minimally productive cough, but with no fever, chills. She reports compliance with her medications. In ER BP elevated, 173/94 and she was started again on magnesium sulfate. Past History Past Medical History: other ( preeclampsia, MR, pulmonary hypertension ) Past Surgical History: (01/17/17) Social history: denies: smoking, alcohol abuse, prescription drug abuse Family history: diabetes, hypertension Medications and Allergies Allergies Allergy/AdvReac Type Severity Reaction Status Date / Time No Known Allergies Allergy Verified 01/10/17 21:30 Home Medications Medication Instructions Recorded Confirmed Last Taken Type Ferrous Sulfate [Feosol 325 MG tab] 325 mg PO BID #60 tablet 01/26/17 02/13/17 Unknown Rx Furosemide [Lasix TAB] 40 mg PO QDAY #30 tablet 01/26/17 02/13/17 Unknown Rx Labetalol [Normodyne TAB] 100 mg PO BID #60 tablet 01/26/17 02/13/17 Unknown Rx Potassium Chloride [K-Dur] 10 meq PO QDAY #30 tablet 01/26/17 02/13/17 Unknown Rx Active Meds: Active Medications Acetaminophen (Tylenol) 650 mg PO Q4H PRN PRN Reason: Pain MILD(1-3)/Fever >100.5/JOHNSON Albuterol (Proventil) 2.5 mg IH Q3HRT PRN PRN Reason: Shortness Of Breath Bisacodyl (Dulcolax) 10 mg OK QDAY PRN PRN Reason: Constipation unrelieved by MOM Furosemide (Lasix) 40 mg IV Q24H SHILA Heparin Sodium (Porcine) (Heparin) 5,000 unit SUB-Q Q8HR SHILA Magnesium Sulfate (Magnesium Sulfate 40gm/1000ml) 40 gm in 1,000 mls @ 25 mls/ hr IV DIRECT SHILA; 1 GM/HR PRN Reason: Protocol Azithromycin 500 mg/ Sodium (Chloride) 250 mls @ 250 mls/hr IV Q24HR SHILA Ceftriaxone Sodium (Rocephin/Ns 1 Gm/50 Ml) 1 gm in 50 mls @ 100 mls/hr IV Q24HR SHILA PRN Reason: Protocol Labetalol HCl (Normodyne) 100 mg PO BID SHILA Magnesium Hydroxide (Milk Of Magnesia) 30 ml PO Q4H PRN PRN Reason: Constipation Ondansetron HCl (Zofran) 4 mg IV Q8H PRN PRN Reason: N/V unrelieved by Reglan Review of Systems Constitutional: no weight loss, no weight gain, no fever, no chills Ears, nose, mouth and throat: no ear pain, no nasal congestion, no nasal discharge, no sinus pressure Breasts: Cardiovascular: shortness of breath, dyspnea on exertion, no chest pain, no syncope, no lightheadedness Respiratory: cough with sputum, shortness of breath, dyspnea on exertion, no hemoptysis, no wheezing, no pleurisy Gastrointestinal: no abdominal pain, no nausea, no vomiting, no change in bowel habits Genitourinary Female: no pelvic pain, no flank pain, no dysuria, no urinary frequency Rectal: no pain, no incontinence, no itching, no hemorrhoids Musculoskeletal: no arm numbness/tingling, no leg numbness/tingling Integumentary: no rash, no pruritis, no sores, no wounds Neurological: no weakness, no parathesias, no numbness, no tingling, no syncope , no tremors Psychiatric: no anxiety, no depression, no hopelessness, no difficulties concentrating Endocrine: no cold intolerance, no heat intolerance, no polydipsia, no polyuria Hematologic/Lymphatic: no easy bruising, no easy bleeding, no lymphadenopathy, no lymphedema Allergic/Immunologic: no persistent infections Exam - Constitutional Vitals: Temp Pulse Resp BP Pulse Ox 98.9 F 77 24 146/96 97 02/13/17 08:05 02/13/17 09:10 02/13/17 09:10 02/13/17 09:10 02/13/17 09:10 General appearance: Present: mild distress, obese - EENT Eyes: Present: PERRL, EOM intact. Absent: scleral icterus, conjunctival injection - Neck Neck: Present: supple, normal ROM. Absent: masses or JVD - Respiratory Respiratory effort: labored, other (on BIPAP) Respiratory: bilateral: diminished, rhonchi, negative: wheezing - Cardiovascular Rhythm: regular Heart Sounds: Present: S1 & S2. Absent: systolic murmur - Extremities Extremities: no ischemia Extremity abnormal: edema (trace) - Abdominal General gastrointestinal: Present: soft, non-tender, non-distended, normal bowel sounds - Integumentary Integumentary: Present: warm, dry. Absent: jaundice, rash - Psychiatric Psychiatric: cooperative - Neurologic Neurologic: CNII-XII intact, no focal deficits Results - Labs CBC & Chem 7: 02/13/17 08:23 02/13/17 08:23 Labs: Abnormal lab results 02/13/17 02/13/17 Range/Units 08:23 08:23 RBC 3.36 L (3.65-5.03) M/mm3 Calcium 8.3 L (8.4-10.2) mg/dL NT-Pro-B Natriuret Pep 1297 H (0-450) pg/mL Albumin 3.5 L (3.9-5) g/dL - Imaging and Cardiology EKG: image reviewed Chest x-ray: image reviewed (LLL air space disease) Assessment and Plan 1. Acute hypoxic respiratory failure Sats 82% on admission, refused ABG Likely multifactorial - acute heart failure/elevated BP/pulmonary hypertension/ pneumonia Treat underlying conditions NIPPV Supplemental oxygen 2. Sepsis likely due to pneumonia Blood cultures obtained and started on antibiotics, ivf Obtain sputum culture Check lactic acid, UA, LFTs 3. Pneumonia Chest x-ray with LLL infiltrate Complains of minimally productive cough, but no fever or chills Started on antibiotics 4. Presumed preeclampsia Receiving magnesium sulfate Monitor BP closely SPEECH ASSISTANT consulted 5. Acute systolic CHF Recent ECHO showed preserved EF, but MR and pulmonary hypertension Started on IV Lasix Monitor I's and O's 6. Iron deficient anemia started on iron Currently hemoglobin in 10 range 7. Hypokalemia On potassium supplementation Monitor 8. Obesity Consulted regarding importance of losing weight when medically stable 9. DVT prophylaxis
[2017-02-13 11:19] LABS: ISTAT Base Excess -4; ISTAT HCO3 21.6; ISTAT PCO2 36.7 (35-45); ISTAT PH 7.379 (7.35-7.45); ISTAT PO2 83 (80-105); ISTAT SO2 96; ISTAT TCO2 23
[2017-02-13] MEDS ORDERED: LASIX ONE (12:27)
[2017-02-13 12:34] LABS: Bacteria,Urine 1+ /HPF (Negative); Bilirubin,Urine NEG (Negative); Blood,Urine LG (Negative); Ketones,Urine NEG (Negative); Leukocyte Esterase,Urine LG (Negative); Mucus,Urine FEW /HPF; Nitrite,Urine NEG (Negative); Protein,Urine <15 mg/dL mg/dL (Negative); RBC,Urine > 182.0 /HPF (0.0-6.0); Urobilinogen,Urine < 2.0 mg/dL (<2.0)
--- NOTE | 2017-02-13 13:32 | Consultation ---
History of Present Illness Consult date: 02/13/17 Reason for consult: other (post pre-eclampsia) History of present illness: This is a 26-year-old female, 1, para 0102, status post section on January 17 for labor who presented to the ER today complaining of chest pain and shortness of breath. She reports her chest pain as mid-sternal and pressure-like and does not radiate to the back, arms or neck. She denies any leg pain or swelling. She was recently admitted to the hospital for elevated BP and respiratory failure. CXR showed pulmonary edema. She had an echocardiogram which demonstrated an ejection fraction 50-55%, pulmonary hypertension, suspected acute heart failure secondary to hypertension and/or possible preeclampsia. She had a chest CT which was negative for pulmonary embolism. She was treated with Magnesium sulfate for post- pre-eclampsia. Her conditions improved and she was discharged home on labetolol 100 mg BID. She has been well since her discharge. In the ER today, the patient was started on BiPAP therapy, and magnesium 4 gm loading dose was given, maintained at 1.5 gm/hr, and IV labetalol. She reports that these interventions improved her symptoms. She declined an ABG. The patient also indicates compliance with her outpatient medications, and denies dietary indiscretions. Past History Past Surgical History: section (For twin and PTL) - Obstetrical History : 1 Para: 0 Number of Pregnancies: 1 Number of Living Children: 2 Medications and Allergies Allergies Allergy/AdvReac Type Severity Reaction Status Date / Time No Known Allergies Allergy Verified 01/10/17 21:30 Home Medications Medication Instructions Recorded Confirmed Last Taken Type Ferrous Sulfate [Feosol 325 MG tab] 325 mg PO BID #60 tablet 01/26/17 02/13/17 Unknown Rx Furosemide [Lasix TAB] 40 mg PO QDAY #30 tablet 01/26/17 02/13/17 Unknown Rx Labetalol [Normodyne TAB] 100 mg PO BID #60 tablet 01/26/17 02/13/17 Unknown Rx Potassium Chloride [K-Dur] 10 meq PO QDAY #30 tablet 01/26/17 02/13/17 Unknown Rx Active Meds: Active Medications Acetaminophen (Tylenol) 650 mg PO Q4H PRN PRN Reason: Pain MILD(1-3)/Fever >100.5/JOHNSON Albuterol (Proventil) 2.5 mg IH Q3HRT PRN PRN Reason: Shortness Of Breath Bisacodyl (Dulcolax) 10 mg SC QDAY PRN PRN Reason: Constipation unrelieved by MOM Furosemide (Lasix) 40 mg IV Q24H SHILA Heparin Sodium (Porcine) (Heparin) 5,000 unit SUB-Q Q8HR SHILA Magnesium Sulfate (Magnesium Sulfate 40gm/1000ml) 40 gm in 1,000 mls @ 37.5 mls /hr IV DIRECT SHILA; 1.5 GM/HR PRN Reason: Protocol Last Admin: 02/13/17 12:02 Dose: 1.5 gm/hr, 37.5 mls/hr Azithromycin 500 mg/ Sodium (Chloride) 250 mls @ 250 mls/hr IV Q24HR SHILA Ceftriaxone Sodium (Rocephin/Ns 1 Gm/50 Ml) 1 gm in 50 mls @ 100 mls/hr IV Q24HR SHILA PRN Reason: Protocol Labetalol HCl (Normodyne) 100 mg PO BID SHILA Magnesium Hydroxide (Milk Of Magnesia) 30 ml PO Q4H PRN PRN Reason: Constipation Ondansetron HCl (Zofran) 4 mg IV Q8H PRN PRN Reason: N/V unrelieved by Reglan Review of Systems Respiratory: shortness of breath - Vital Signs Vital signs: Vital Signs Temp Pulse Resp BP Pulse Ox 98.9 F 96 H 32 H 168/85 82 L 02/13/17 08:05 02/13/17 08:05 02/13/17 08:05 02/13/17 08:05 02/13/17 08:05 Temp Pulse Resp BP Pulse Ox 98.9 F 73 28 H 138/89 98 02/13/17 08:05 02/13/17 12:30 02/13/17 12:40 02/13/17 12:50 02/13/17 12:40 - Physical Exam Breasts: Positive: deferred Vulva: both: normal Results Result Diagrams: 02/13/17 08:23 02/13/17 08:23 Abnormal lab results 02/13/17 02/13/17 Range/Units 11:16 12:15 HCG, Quant 10.28 H (0-4) mIU/mL Urine pH 8.0 H (5.0-7.0) Urine WBC (Auto) 44.0 H (0.0-6.0) /HPF All other labs normal. Assessment and Plan - Patient Problems (1) Pre-eclampsia, Onset Date: ~02/13/17 Current Visit: Yes Status: Acute Plan to address problem: Magnesium sulfate given. Monitor Mg level and urine output. Monitor BP. (2) Pneumonia Current Visit: Yes Status: Acute Qualifiers: Pneumonia type: P Aspiration pneumonia type: A Laterality: L Lung location: L Plan to address problem: IV antiboitics was given. Continue as per hospitalist team. (3) Respiratory failure Onset Date: ~02/13/17 Current Visit: Yes Status: Acute Qualifiers: Chronicity: C Respiratory failure complication: R (4) Systolic CHF, acute Current Visit: Yes Status: Acute Plan to address problem: Continue care as per Hospitalist team.
[2017-02-13] MEDS: HEPARIN SUB-Q SCH ×2 (14:19→22:30)
[2017-02-13] MEDS: NORMODYNE PO SCH (22:30)
[2017-02-14] MEDS: HEPARIN SUB-Q SCH ×3 (06:35→21:24)
[2017-02-14 07:47] LABS: Basophils % (Auto) 0.5 % (0.0-1.8); Hematocrit 31.6 % (30.3-42.9); Hemoglobin 10.4 gm/dl (10.1-14.3); Mean Corpuscular HGB Conc 33 % (30-34); Mean Corpuscular Hemoglobin 31 pg (28-32); Mean Corpuscular Volume 94 fl (79-97); Platelet Count 395 K/mm3 (140-440); Red Blood Count 3.38 M/mm3 (3.65-5.03); White Blood Count 6.3 K/mm3 (4.5-11.0)
--- NOTE | 2017-02-14 07:49 | Progress Note ---
Assessment and Plan Assessment and plan: 1. Acute hypoxic respiratory failure Sats 82% on admission, refused ABG Likely multifactorial - acute heart failure/elevated BP/pulmonary hypertension/ pneumonia Treat underlying conditions NIPPV, supplemental oxygen 2. Sepsis likely due to pneumonia/UTI Blood cultures obtained and started on antibiotics, ivf 3. Pneumonia Chest x-ray with LLL infiltrate Complains of minimally productive cough, but no fever or chills Started on antibiotics 4. UTI UA positive Obtain urine culture Already on Rocephine for pneumonia 5. 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 Presumed acute systolic CHF Recent ECHO showed preserved EF, but MR and pulmonary hypertension Started on IV Lasix Monitor I's and O's 7. Iron deficient anemia started on iron Currently hemoglobin in 10 range 8. Hypokalemia On potassium supplementation Monitor 9. Obesity Consulted regarding importance of losing weight when medically stable 10. DVT prophylaxis History Interval history: SOB improved, weaned to O2 per NC, feeling better Hospitalist Physical - Constitutional Vitals: Temp Pulse Resp BP Pulse Ox 98.7 F 76 18 141/79 98 02/14/17 06:17 02/14/17 06:17 02/14/17 06:17 02/14/17 06:17 02/14/17 06:17 General appearance: Present: no acute distress, obese - EENT Eyes: Present: PERRL, EOM intact. Absent: scleral icterus, conjunctival injection - Neck Neck: Present: supple. Absent: enlarged thyroid, masses or JVD - Respiratory Respiratory effort: normal (at rest), labored (with activity), other (on O2 per NC) Respiratory: bilateral: diminished, rhonchi, negative: wheezing - Cardiovascular Rhythm: regular Heart Sounds: Present: S1 & S2. Absent: systolic murmur - Extremities Extremities: no ischemia Extremity abnormal: edema (trace) - Abdominal General gastrointestinal: soft, non-tender, non-distended, normal bowel sounds - Psychiatric Psychiatric: cooperative - Neurologic Neurologic: CNII-XII intact, no focal deficits Results - Labs CBC & Chem 7: 02/14/17 07:21 02/14/17 07:21 Labs: Laboratory Last Values WBC 6.8 K/mm3 (4.5-11.0) 02/13/17 08:23 RBC 3.36 M/mm3 (3.65-5.03) L 02/13/17 08:23 Hgb 10.4 gm/dl (10.1-14.3) 02/13/17 08:23 Hct 31.2 % (30.3-42.9) 02/13/17 08:23 MCV 93 fl (79-97) 02/13/17 08:23 MCH 31 pg (28-32) 02/13/17 08: MCHC 33 % (30-34) 02/13/17 08:23 RDW 14.6 % (13.2-15.2) 02/13/17 08:23 Plt Count 406 K/mm3 (140-440) 02/13/17 08:23 PT 14.0 Sec. (12.2-14.9) 02/13/17 08:23 INR 1.03 (0.87-1.13) 02/13/17 08:23 APTT 34.1 Sec. (24.2-36.6) 02/13/17 08:23 POC ABG pH 7.379 (7.35-7.45) 02/13/17 11:19 POC ABG pCO2 36.7 (35-45) 02/13/17 11:19 POC ABG pO2 83 (80-105) 02/13/17 11:19 POC ABG HCO3 21.6 02/13/17 11:19 POC ABG Total CO2 23 02/13/17 11:19 POC ABG O2 Sat 96 02/13/17 11:19 POC ABG Base Excess -4 02/13/17 11:19 FiO2 30 % 02/13/17 11:19 Sodium 143 mmol/L (137-145) 02/13/17 08:23 Potassium 3.6 mmol/L (3.6-5.0) 02/13/17 08:23 Chloride 106.4 mmol/L (98-107) 02/13/17 08:23 Carbon Dioxide 24 mmol/L (22-30) 02/13/17 08:23 Anion Gap 16 mmol/L 02/13/17 08:23 BUN 9 mg/dL (7-17) 02/13/17 08:23 Creatinine 0.8 mg/dL (0.7-1.2) 02/13/17 08:23 Estimated GFR > 60 ml/min 02/13/17 08:23 BUN/Creatinine Ratio 11 % 02/13/17 08:23 Glucose 92 mg/dL (65-100) 02/13/17 08:23 Lactic Acid 1.00 mmol/L (0.7-2.0) 02/13/17 09:36 Calcium 8.3 mg/dL (8.4-10.2) L 02/13/17 08:23 Total Bilirubin 0.30 mg/dL (0.1-1.2) 02/13/17 08:23 AST 16 units/L (5-40) 02/13/17 08:23 ALT 11 units/L (7-56) 02/13/17 08:23 Alkaline Phosphatase 69 units/L (35-129) 02/13/17 08:23 Troponin T < 0.010 ng/mL (0.00-0.029) 02/13/17 08:23 NT-Pro-B Natriuret Pep 1297 pg/mL (0-450) H 02/13/17 08:23 Total Protein 7.1 g/dL (6.3-8.2) 02/13/17 08:23 Albumin 3.5 g/dL (3.9-5) L 02/13/17 08:23 Albumin/Globulin Ratio 1.0 % 02/13/17 08:23 HCG, Quant 10.28 mIU/mL (0-4) H 02/13/17 11:16 Urine Color Yellow (Yellow) 02/13/17 12:15 Urine Turbidity Clear (Clear) 02/13/17 12:15 Urine pH 8.0 (5.0-7.0) H 02/13/17 12:15 Ur Specific [place] 1.009 (1.003-1.030) 02/13/17 12:15 Urine Protein <15 mg/dl mg/dL (Negative) 02/13/17 12:15 Urine Glucose (UA) Neg mg/dL (Negative) 02/13/17 12:15 Urine Ketones Neg mg/dL (Negative) 02/13/17 12:15 Urine Blood Lg (Negative) 02/13/17 12:15 Urine Nitrite Neg (Negative) 02/13/17 12:15 Urine Bilirubin Neg (Negative) 02/13/17 12:15 Urine Urobilinogen < 2.0 mg/dL (<2.0) 02/13/17 12:15 Ur Leukocyte Esterase Lg (Negative) 02/13/17 12:15 Urine WBC (Auto) 44.0 /HPF (0.0-6.0) H 02/13/17 12:15 Urine RBC (Auto) > 182.0 /HPF (0.0-6.0) 02/13/17 12:15 U Epithel Cells (Auto) 1.0 /HPF (0-13.0) 02/13/17 12:15 Urine Bacteria (Auto) 1+ /HPF (Negative) 02/13/17 12:15 Urine Mucus Few /HPF 02/13/17 12:15
[2017-02-14 08:36] LABS: Anion Gap 20 mmol/L; BUN/Creatinine Ratio 6; Blood Urea Nitrogen 5 mg/dL (7-17); Calcium 7.8 mg/dL (8.4-10.2); Carbon Dioxide 23 mmol/L (22-30); Chloride 105.3 mmol/L (98-107); Glucose 102 mg/dL (65-100); Potassium 3.6 mmol/L (3.6-5.0); Sodium 145 mmol/L (137-145)
[2017-02-14] MEDS: LASIX IV SCH (09:45)
[2017-02-14] MEDS: ROCEPHIN/NS 1 GM/50 ML 1 GM/50 ML BAG IV SCH (09:45)
[2017-02-14] MEDS: NORMODYNE PO SCH ×2 (09:46→21:21)
[2017-02-14] MEDS: ZITHROMAX 500 MG in NACL 0.9% 250ML 250 ML IV SCH (11:56)
[2017-02-14] MEDS ORDERED: FIORICET PO PRN (12:14)
[2017-02-15] MEDS: HEPARIN SUB-Q SCH ×3 (06:18→22:30)
[2017-02-15] MEDS: LASIX IV SCH (09:21)
[2017-02-15] MEDS: ZITHROMAX 500 MG in NACL 0.9% 250ML 250 ML IV SCH (09:21)
[2017-02-15] MEDS: ROCEPHIN/NS 1 GM/50 ML 1 GM/50 ML BAG IV SCH (09:22)
[2017-02-15] MEDS: NORMODYNE PO SCH ×2 (09:23→22:30)
--- NOTE | 2017-02-15 16:05 | Progress Note ---
Assessment and Plan Assessment and plan: 1. Acute hypoxic respiratory failure Sats 82% on admission, refused ABG Likely multifactorial - presumed acute heart failure/elevated BP/pulmonary hypertension/pneumonia Treat underlying conditions NIPPV weaned off, supplemental oxygen 2. Sepsis likely due to pneumonia/UTI Blood cultures obtained and started on antibiotics, ivf 3. Pneumonia Chest x-ray with LLL infiltrate Complained of minimally productive cough, but no fever or chills Started on antibiotics 4. UTI UA positive Urine culture obtained Already on Rocephine for pneumonia 5. Presumed preeclampsia Received magnesium sulfate in ER, then continued on labetalol and lasix BP well controlled now with SBP in 120s Monitor closely 6. Presumed acute systolic CHF Recent ECHO showed preserved EF, but MR and pulmonary hypertension On IV Lasix, switch to po Monitor I's and O's 7. Iron deficient anemia started on iron Currently hemoglobin in 10 range 8. Hypokalemia On potassium supplementation Monitor 9. Obesity Consulted regarding importance of losing weight when medically stable 10. DVT prophylaxis History Interval history: doing well, not requiring BiPAP, on O2 per NC, weaning off Hospitalist Physical - Constitutional Vitals: Temp Pulse Resp BP Pulse Ox 98.5 F 63 22 125/72 98 02/15/17 09:05 02/15/17 12:00 02/15/17 10:00 02/15/17 09:23 02/15/17 09:05 General appearance: Present: no acute distress, obese - EENT Eyes: Present: PERRL, EOM intact - Neck Neck: Present: supple, normal ROM. Absent: masses or JVD - Respiratory Respiratory effort: normal Respiratory: bilateral: diminished, rhonchi, negative: wheezing - Cardiovascular Rhythm: regular Heart Sounds: Present: S1 & S2. Absent: systolic murmur - Extremities Extremities: no ischemia - Abdominal General gastrointestinal: soft, non-tender, non-distended, normal bowel sounds - Psychiatric Psychiatric: cooperative - Neurologic Neurologic: CNII-XII intact, no focal deficits Results - Labs CBC & Chem 7: 02/14/17 07:21 02/14/17 07:21 Labs: Laboratory Last Values WBC 6.3 K/mm3 (4.5-11.0) 02/14/17 07:21 RBC 3.38 M/mm3 (3.65-5.03) L 02/14/17 07:21 Hgb 10.4 gm/dl (10.1-14.3) 02/14/17 07:21 Hct 31.6 % (30.3-42.9) 02/14/17 07:21 MCV 94 fl (79-97) 02/14/17 07:21 MCH 31 pg (28-32) 02/14/17 07:21 MCHC 33 % (30-34) 02/14/17 07:21 RDW 15.0 % (13.2-15.2) 02/14/17 07:21 Plt Count 395 K/mm3 (140-440) 02/14/17 07:21 Lymph % (Auto) 30.7 % (13.4-35.0) 02/14/17 07:21 [place] % (Auto) 11.2 % (0.0-7.3) H 02/14/17 07:21 Eos % (Auto) 5.0 % (0.0-4.3) H 02/14/17 07:21 Baso % (Auto) 0.5 % (0.0-1.8) 02/14/17 07:21 Lymph # 1.9 K/mm3 (1.2-5.4) 02/14/17 07:21 [place] # 0.7 K/mm3 (0.0-0.8) 02/14/17 07:21 Eos # 0.3 K/mm3 (0.0-0.4) 02/14/17 07:21 Baso # 0.0 K/mm3 (0.0-0.1) 02/14/17 07:21 Seg Neutrophils % 52.6 % (40.0-70.0) 02/14/17 07:21 Seg Neutrophils # 3.3 K/mm3 (1.8-7.7) 02/14/17 07:21 PT 14.0 Sec. (12.2-14.9) 02/13/17 08:23 INR 1.03 (0.87-1.13) 02/13/17 08:23 APTT 34.1 Sec. (24.2-36.6) 02/13/17 08:23 POC ABG pH 7.379 (7.35-7.45) 02/13/17 11:19 POC ABG pCO2 36.7 (35-45) 02/13/17 11:19 POC ABG pO2 83 (80-105) 02/13/17 11:19 POC ABG HCO3 21.6 02/13/17 11:19 POC ABG Total CO2 23 02/13/17 11:19 POC ABG O2 Sat 96 02/13/17 11:19 POC ABG Base Excess -4 02/13/17 11:19 FiO2 30 % 02/13/17 11:19 Sodium 145 mmol/L (137-145) 02/14/17 07:21 Potassium 3.6 mmol/L (3.6-5.0) 02/14/17 07:21 Chloride 105.3 mmol/L (98-107) 02/14/17 07:21 Carbon Dioxide 23 mmol/L (22-30) 02/14/17 07:21 Anion Gap 20 mmol/L 02/14/17 07:21 BUN 5 mg/dL (7-17) L 02/14/17 07:21 Creatinine 0.8 mg/dL (0.7-1.2) 02/14/17 07:21 Estimated GFR > 60 ml/min 02/14/17 07:21 BUN/Creatinine Ratio 6 % 02/14/17 07:21 Glucose 102 mg/dL (65-100) H 02/14/17 07:21 Lactic Acid 1.00 mmol/L (0.7-2.0) 02/13/17 09:36 Calcium 7.8 mg/dL (8.4-10.2) L 02/14/17 07:21 Total Bilirubin 0.30 mg/dL (0.1-1.2) 02/13/17 08:23 AST 16 units/L (5-40) 02/13/17 08:23 ALT 11 units/L (7-56) 02/13/17 08:23 Alkaline Phosphatase 69 units/L (35-129) 02/13/17 08:23 Troponin T < 0.010 ng/mL (0.00-0.029) 02/13/17 08:23 NT-Pro-B Natriuret Pep 1297 pg/mL (0-450) H 02/13/17 08:23 Total Protein 7.1 g/dL (6.3-8.2) 02/13/17 08:23 Albumin 3.5 g/dL (3.9-5) L 02/13/17 08:23 Albumin/Globulin Ratio 1.0 % 02/13/17 08:23 HCG, Quant 10.28 mIU/mL (0-4) H 02/13/17 11:16 Urine Color Yellow (Yellow) 02/13/17 12:15 Urine Turbidity Clear (Clear) 02/13/17 12:15 Urine pH 8.0 (5.0-7.0) H 02/13/17 12:15 Ur Specific [place] 1.009 (1.003-1.030) 02/13/17 12:15 Urine Protein <15 mg/dl mg/dL (Negative) 02/13/17 12:15 Urine Glucose (UA) Neg mg/dL (Negative) 02/13/17 12:15 Urine Ketones Neg mg/dL (Negative) 02/13/17 12:15 Urine Blood Lg (Negative) 02/13/17 12:15 Urine Nitrite Neg (Negative) 02/13/17 12:15 Urine Bilirubin Neg (Negative) 02/13/17 12:15 Urine Urobilinogen < 2.0 mg/dL (<2.0) 02/13/17 12:15 Ur Leukocyte Esterase Lg (Negative) 02/13/17 12:15 Urine WBC (Auto) 44.0 /HPF (0.0-6.0) H 02/13/17 12:15 Urine RBC (Auto) > 182.0 /HPF (0.0-6.0) 02/13/17 12:15 U Epithel Cells (Auto) 1.0 /HPF (0-13.0) 02/13/17 12:15 Urine Bacteria (Auto) 1+ /HPF (Negative) 02/13/17 12:15 Urine Mucus Few /HPF 02/13/17 12:15
--- NOTE | 2017-02-15 17:38 | Consultation ---
History of Present Illness Consult date: 02/15/17 Reason for consult: other (pre-eclampsia) History of present illness: his is a 26-year-old female, 1, para 0102, status post section on January 17 for labor who was admitted 2 days ago for pneumonia and post pre-eclampsia. She presented to the ER on 02/13/17 complaining of chest pain and shortness of breath. She reported that her her chest pain was mid-sternal and pressure-like and did not radiate to the back, arms or neck. She denied any leg pain or swelling. Her BP was very elevated. She was previously admitted to the hospital for elevated BP and respiratory failure on 01/24/17 which was a week after her delivery. CXR showed pulmonary edema. She had an echocardiogram which demonstrated an ejection fraction 50-55% , pulmonary hypertension, suspected acute heart failure secondary to hypertension and/or possible preeclampsia. She had a chest CT which was negative for pulmonary embolism. She was treated with Magnesium sulfate for post- pre-eclampsia, oxygen, laxix and labetolol. Her conditions improved and she was discharged home on labetolol 100 mg BID. She has been well since her discharge. During this admission, CXR showed left lower lobe infiltrates. She was treated with BiPAP therapy, and magnesium sulfate for 24 hours, IV lasix, IV labetalol, IV rocephin and zithromax for pneumonia. She reports that these interventions improved her symptoms. She has been on the Telemetry unit. Today, she says that she is feeling better, she can breathe well now. She ambulate without any complaint. Past History Past Medical History: hypertension Past Surgical History: section (For twin and PTL) - Obstetrical History : 1 Number of Pregnancies: 1 Number of Living Children: 2 Medications and Allergies Allergies Allergy/AdvReac Type Severity Reaction Status Date / Time No Known Allergies Allergy Verified 01/10/17 21:30 Home Medications Medication Instructions Recorded Confirmed Last Taken Type Ferrous Sulfate [Feosol 325 MG tab] 325 mg PO BID #60 tablet 01/26/17 02/13/17 Unknown Rx Furosemide [Lasix TAB] 40 mg PO QDAY #30 tablet 01/26/17 02/13/17 Unknown Rx Labetalol [Normodyne TAB] 100 mg PO BID #60 tablet 01/26/17 02/13/17 Unknown Rx Potassium Chloride [K-Dur] 10 meq PO QDAY #30 tablet 01/26/17 02/13/17 Unknown Rx Active Meds: Active Medications Acetaminophen (Tylenol) 650 mg PO Q4H PRN PRN Reason: Pain MILD(1-3)/Fever >100.5/JOHNSON Last Admin: 02/13/17 20:02 Dose: 650 mg Acetaminophen/Butalbital/Caffeine (Fioricet) 1 tab PO Q4H PRN PRN Reason: Headache Last Admin: 02/14/17 12:28 Dose: 1 tab Albuterol (Proventil) 2.5 mg IH Q3HRT PRN PRN Reason: Shortness Of Breath Azithromycin (Zithromax) 500 mg PO QDAY SHILA Bisacodyl (Dulcolax) 10 mg [place] QDAY PRN PRN Reason: Constipation unrelieved by MOM Furosemide (Lasix) 20 mg PO QDAY [facility] Heparin Sodium (Porcine) (Heparin) 5,000 unit SUB-Q Q8HR [facility] Last Admin: 02/15/17 14:34 Dose: Not Given Ceftriaxone Sodium (Rocephin/Ns 1 Gm/50 Ml) 1 gm in 50 mls @ 100 mls/hr IV Q24HR [facility] PRN Reason: Protocol Last Admin: 02/15/17 09:22 Dose: 100 mls/hr Labetalol HCl (Normodyne) 100 mg PO BID [facility] Last Admin: 02/15/17 09:23 Dose: 100 mg Magnesium Hydroxide (Milk Of Magnesia) 30 ml PO Q4H PRN PRN Reason: Constipation Ondansetron HCl (Zofran) 4 mg IV Q8H PRN PRN Reason: N/V unrelieved by Reglan - Vital Signs Vital signs: Vital Signs Temp Pulse Resp BP Pulse Ox 98.9 F 96 H 32 H 168/85 82 L 02/13/17 08:05 02/13/17 08:05 02/13/17 08:05 02/13/17 08:05 02/13/17 08:05 Temp Pulse Resp BP Pulse Ox 98.5 F 63 22 125/72 98 02/15/17 09:05 02/15/17 12:00 02/15/17 10:00 02/15/17 09:23 02/15/17 09:05 - Physical Exam Adnexa: both: normal Results Result Diagrams: 02/14/17 07:21 02/14/17 07:21 All other labs normal. Assessment and Plan - Patient Problems (1) Pre-eclampsia, Onset Date: ~02/13/17 Current Visit: Yes Status: Acute Plan to address problem: Magnesium sulfate given, d/c yesterday. (2) Pneumonia Current Visit: Yes Status: Acute Qualifiers: Pneumonia type: P Aspiration pneumonia type: A Laterality: L Lung location: L Plan to address problem: Treated with IV rocephin and zithromax. (3) Respiratory failure Onset Date: ~02/13/17 Current Visit: Yes Status: Acute Qualifiers: Chronicity: C Respiratory failure complication: R Plan to address problem: Oxygen and BiPAP therapy (4) Systolic CHF, acute Current Visit: Yes Status: Acute Plan to address problem: Diuretics and labetolol. (5) Anemia Current Visit: Yes Status: Acute Qualifiers: Anemia type: iron deficiency Iron deficiency anemia type: I Vitamin B12 deficiency anemia type: V Folate deficiency anemia type: F Bone marrow failure anemia type: B Hemolytic anemia type: H Other causes of anemia: O Chronic kidney disease stage: C Plan to address problem: Iron sulffate. (6) Obesity (BMI 30.0-34.9) Current Visit: Yes Status: Acute
[2017-02-16] MEDS: HEPARIN SUB-Q SCH (06:14)
[2017-02-16 09:29] VITALS: BP 121/68
[2017-02-16] MEDS: NORMODYNE PO SCH (09:30)
[2017-02-16] MEDS ORDERED: LASIX PO SCH (10:00)
[2017-02-16] MEDS ORDERED: ZITHROMAX PO SCH (10:00)
[2017-02-16] MEDS: ROCEPHIN/NS 1 GM/50 ML 1 GM/50 ML BAG IV SCH (10:16)
--- NOTE | 2017-02-16 10:42 | Discharge Summary ---
Providers - Providers Date of Admission: 02/13/17 10:08 Date of discharge: 02/16/17 Attending physician: ILSA SEARS Primary care physician: APPLICATIONS SCIENTIST Hospitalization Reason for admission: SOB Condition: Stable Pertinent studies: CXR Hospital course: 1. Acute hypoxic respiratory failure Sats 82% on admission, refused ABG Likely multifactorial - presumed acute heart failure/elevated BP/pulmonary hypertension/pneumonia Treat underlying conditions NIPPV weaned off, supplemental oxygen 2. Sepsis likely due to pneumonia/UTI Blood cultures obtained and started on antibiotics, ivf 3. Pneumonia Chest x-ray with LLL infiltrate Complained of minimally productive cough, but no fever or chills Started on antibiotics 4. UTI UA positive Urine culture obtained Already on Rocephine for pneumonia 5. Presumed preeclampsia Received magnesium sulfate in ER, then continued on labetalol and lasix BP well controlled now with SBP in 120s Monitor closely 6. Presumed acute systolic CHF Recent ECHO showed preserved EF, but MR and pulmonary hypertension On IV Lasix, switch to po Monitor I's and O's 7. Iron deficient anemia started on iron Currently hemoglobin in 10 range 8. Hypokalemia On potassium supplementation Monitor 9. Obesity Consulted regarding importance of losing weight when medically stable Disposition: DC-01 TO HOME OR SELFCARE Time spent for discharge: 35 min Core Measure Documentation - Palliative Care Palliative Care/ Comfort Measures: Not Applicable - Core Measures Any of the following diagnoses?: none Exam - Physical Exam Narrative exam: Seen and examined: - Constitutional Vitals: Temp Pulse Resp BP Pulse Ox 98.9 F 71 18 121/68 99 02/16/17 08:14 02/16/17 08:41 02/16/17 08:14 02/16/17 08:14 02/16/17 09:27 General appearance: Present: no acute distress, obese - EENT Eyes: Present: PERRL, EOM intact - Neck Neck: Present: supple, normal ROM. Absent: masses or JVD - Respiratory Respiratory effort: normal Respiratory: bilateral: CTA, negative: rhonchi, wheezing - Cardiovascular Rhythm: regular Heart Sounds: Present: S1 & S2. Absent: systolic murmur - Extremities Extremities: no ischemia - Abdominal General gastrointestinal: Present: soft, non-tender, non-distended, normal bowel sounds - Musculoskeletal Musculoskeletal: strength equal bilaterally - Psychiatric Psychiatric: cooperative - Neurologic Neurologic: CNII-XII intact, no focal deficits Plan Activity: advance as tolerated Diet: low cholesterol, low salt Follow up with: PRIMARY CARE, [Primary Care Provider] - 3-5 Days Prescriptions: Amoxicillin/Potassium Clav [Augmentin Xr 1,000-62.5 Tab] 1 each PO BID #8 tab.er.12h Furosemide [Lasix TAB] 20 mg PO QDAY #30 tablet Labetalol [Normodyne TAB] 100 mg PO BID #60 tablet Potassium Chloride [K-Dur] 10 meq PO QDAY #30 tablet
== END 2017-02-16 13:31 | disposition home or self-care (01) | DRG 776 ==
LOC: ED 08:03 → 4A 10:08
PROVIDERS: ADMIT Internal Medicine; ATTEND Internal Medicine
PROC: 4A033R1 Measurement of Arterial Saturation, Peripheral, Percutaneous Approach (ICD-10-PCS; principal; 2017-02-13)
PROC: 5A09457 Assistance with Respiratory Ventilation, 24-96 Consecutive Hours, Continuous Positive Airway Pressure (ICD-10-PCS; 2017-02-13)
DX: O85 Puerperal sepsis (principal); I50.21 Acute systolic (congestive) heart failure; J96.01 Acute respiratory failure with hypoxia; O88.23 Thromboembolism in the puerperium; J18.9 Pneumonia, unspecified organism; O99.43 Diseases of the circulatory system complicating the puerperium; N39.0 Urinary tract infection, site not specified; O99.345 Other mental disorders complicating the puerperium; O99.215 Obesity complicating the puerperium; O90.81 Anemia of the puerperium; O89.1 Cardiac complications of anesthesia during the puerperium; O14.95 Unspecified pre-eclampsia, complicating the puerperium; D50.9 Iron deficiency anemia, unspecified; E87.6 Hypokalemia; I27.20 Pulmonary hypertension, unspecified; F41.9 Anxiety disorder, unspecified; E66.9 Obesity, unspecified; E66.01 Morbid (severe) obesity due to excess calories; Z68.37 Body mass index [BMI] 37.0-37.9, adult
CPT/HCPCS: 36415; 71010; 80048; 80053; 81001; 82140; 82803; 83880; 84484; 84702; 85025; 85027; 85610; 85730; 87040; 87086; 93005; 93010; 94760; 96365; 96367; 96375; J0456; J0696; J1644; J1940; J3475; J7050